=== PATIENT | male | born 1935 | race Hispanic/Latino ===

== ENCOUNTER 2019-04-12 21:04 | Inpatient (IN) | payer MEDICARE ==
[2019-04-12] MEDS ORDERED: ASPIRIN PO ONE (21:25)
[2019-04-12] MEDS ORDERED: ZOFRAN ONE (21:37)
[2019-04-12 21:53] LABS: Basophils % (Auto) 0.2 % (0.0-1.8); Hematocrit 37.4 % (35.5-45.6); Hemoglobin 12.2 gm/dl (11.8-15.2); Lymphocytes # (Auto) 0.4 K/mm3 (1.2-5.4); Lymphocytes % (Auto) 10.4 % (13.4-35.0); Mean Corpuscular HGB Conc 33 % (32-34); Mean Corpuscular Volume 98 fl (84-94); Monocytes % (Auto) 0.9 % (0.0-7.3); Platelet Count 142 K/mm3 (140-440); Red Blood Count 3.83 M/mm3 (3.65-5.03); Red Cell Distribution Width 15.7 % (13.2-15.2)
[2019-04-12 22:04] LABS: BUN/Creatinine Ratio 16; Blood Urea Nitrogen 24 mg/dL (9-20); Calcium 8.8 mg/dL (8.4-10.2); Hemolysis Index 41
--- NOTE | 2019-04-12 22:37 | XRay Report ---
CHEST 1 VIEW INDICATION / CLINICAL INFORMATION: Chest Pain. COMPARISON: 10/15/2015 chest FINDINGS: SUPPORT DEVICES: Left subclavian dual-lead pacemaker with intact right atrial and right ventricular l star. HEART / MEDIASTINUM: Normal heart size. Tortuous descending thoracic aorta. LUNGS / PLEURA: No acute airspace disease. Elevated right hemidiaphragm noted. No pleural fluid or pn eumothorax. IMPRESSION: 1. No acute findings. Signer Name: Adeel Walton MD Signed: 04/12/2019 10:32 PM Workstation Name: [id number]
--- NOTE | 2019-04-12 23:09 | Emergency Department Report ---
HPI - General Chief Complaint: Abdominal Pain Time Seen by Provider: 04/12/19 22:12 - HPI HPI: 84-year-old male presents to the emergency department via EMS with the complaint of lower chest and upper abdominal pain that started about 2 hours dion or to arrival. It was associated with some nausea and vomiting. He did not take anything and was not given anything for his symptoms prior to presentation. His pain has improved from the original 10 out of 10 to about a 4 out of 10. EMS said that they saw a 2 fibrillation with PVCs on 1-lead. He had a blood pressure 197/128 with EMS. The patient is awake and alert but does have some history of dementia. His is currently at bedside providing some information as well. He has a past nuchal history of GERD, hypertension, his maker, coronary artery disease, high cholesterol. His primary care physician is Dr. Morejon and his spray gun sizer is Dr. Christianson. No recent travel or sick contacts at home. ED Past Medical Hx - Past Medical History Previous Medical History?: Yes Hx Hypertension: Yes Hx Diabetes: Yes (PREDIABETIC) Hx GERD: Yes Hx Arthritis: Yes (baclk) Hx Kidney Stones: Yes Additional medical history: Pacemaker, SHINGLES. CAD. HIGH CHOLESTEROL - Surgical History Past Surgical History?: Yes Hx Appendectomy: Yes Additional Surgical History: Pacemaker. HERNIA REPAIR X 3. CYSTOSCOPE. CAROTID SURGERY (LEFT) - Social History Smoking Status: Former Smoker Substance Use Type: Prescribed - Medications Home Medications: Home Medications Medication Instructions Recorded Confirmed Last Taken Type Aspirin 325 mg PO QDAY #30 tablet 08/30/15 10/15/15 10/13/15 Rx Benazepril HCl [Lotensin] 20 mg PO DAILY #30 tablet 08/30/15 10/15/15 10/13/15 Rx Simvastatin (Nf) [Zocor TAB] 20 mg PO QHS #30 tablet 08/30/15 10/15/15 10/13/15 Rx ED Review of Systems ROS: Stated complaint: ABD PAIN/CHEST PAIN Other details as noted in HPI Comment: All other systems reviewed and negative Constitutional: denies: chills, fever Eyes: denies: eye pain, vision change ENT: denies: ear pain, throat pain Respiratory: shortness of breath. denies: cough Cardiovascular: chest pain. denies: palpitations Gastrointestinal: abdominal pain, nausea, vomiting Genitourinary: denies: dysuria, frequency Musculoskeletal: denies: back pain, arthralgia Skin: denies: rash, lesions Neurological: denies: headache, weakness Physical Exam - Physical Exam Vital Signs: Vital Signs 04/12/19 21:15 Temperature 101.6 F H Pulse Rate 93 H Respiratory 22 Rate Blood Pressure 129/57 [Left] O2 Sat by Pulse 97 Oximetry Physical Exam: GENERAL: The patient is well-developed well-nourished. HENT: Normocephalic. Atraumatic. Patient has moist mucous membranes. EYES: Extraocular motions are intact. Pupils equal reactive to light bilateral ly. NECK: Supple. Trachea is midline. CHEST/LUNGS: Clear to auscultation. There is no respiratory distress noted. HEART/CARDIOVASCULAR: Regular. There is no tachycardia. There is no murmur. ABDOMEN: Abdomen is soft. There is epigastric and right upper quadrant tenderness to palpation. No guarding. Patient has normal bowel sounds. There is no abdominal distention. SKIN: Skin is warm and dry. NEURO: The patient is awake, alert, and cooperative. The patient has no focal neurologic deficits. Normal speech. MUSCULOSKELETAL: There is no tenderness or deformity. There is no evidence of acute injury. ED Course Vital Signs 04/12/19 21:15 Temperature 101.6 F H Pulse Rate 93 H Respiratory 22 Rate Blood Pressure 129/57 [Left] O2 Sat by Pulse 97 Oximetry - Consultations Consultation #1: 04/13/19 05:01 I spoke with the general surgeon on-call, Dr. Zavala, regarding the lab and imaging results with concern for early acute cholecystitis. She is happy to consult on the patient but there is no immediate surgical intervention necessary. She agrees with the plan for IV fluid resuscitation, pain control, antiemetics and nothing by mouth. ED Medical Decision Making - Lab Data Result diagrams: 04/12/19 21:40 04/12/19 21:40 - EKG Data -: EKG Interpreted by Me - EKG Data When compared to previous EKG there are: changes noted (previous EKG did not show pacemaker) Interpretation: other (atrial sensed ventricular paced rhythm, rate 94, prolonged IA and QTC intervals) - Radiology Data Radiology results: report reviewed, image reviewed interpreted by me: Chest x-ray does not show any acute process. There are no pleural effusions, obvious pneumonia and there is no pneumothorax. CT ABDOMEN AND PELVIS WITH IV CONTRAST INDICATION: Abd pain, elevated lipase. COMPARISON: None available. TECHNIQUE: Axial CT images were obtained through the abdomen and pelvis after 100 mL IV contrast. All CT scans at this location are performed using CT dose reduction for ALARA by means of automated exposure control. FINDINGS -- ABDOMEN: Lung Bases: No acute abnormality. Liver: Normal. Gallbladder: Mild gallbladder wall thickening. No gallstones identified.. Bile Ducts: Common bile duct is borderline dilated measuring 7 to 8 mm in diameter.. Pancreas: No significant inflammatory process Spleen: Normal. Adrenals: Normal. Right Kidney and Proximal Ureter: Large simple cyst. 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 Stomach and Bowel: Normal. Lymph Nodes: No significant adenopathy. Aorta: Scattered atherosclerotic calcification.. IVC: Normal. Additional Findings: None. FINDINGS -- PELVIS: Urinary Bladder and Distal Ureters: Normal. Reproductive Organs: No acute abnormality. Appendix: Normal. Bowel: Few colonic diverticula without diverticulitis.. Free Fluid: None. Lymph Nodes: No significant adenopathy. Additional Findings: None. Skeletal System: No acute abnormality. IMPRESSION: 1. The gallbladder wall appears borderline thickened which could be seen with early cholecystitis. No gallstones appreciated. 2. No significant peripancreatic inflammation appreciated. CTA CHEST WITH IV CONTRAST INDICATION: CP, elevated dimer. Acute onset chest pain with dyspnea. TECHNIQUE: Axial CT images were obtained through the chest after injection of 100 mL IV contrast. 3 plane MIP reconstructions were produced. All CT scans at this location are performed using CT dose reduction for ALARA by means of automated exposure control. COMPARISON: None available. FINDINGS: PULMONARY ARTERIES: No pulmonary emboli. AORTA AND ARTERIES: No acute abnormality. MEDIASTINUM: No mass, lymphadenopathy or other significant abnormality. The heart is normal in size without a pericardial effusion. The trachea and main bronchi are patent and normal in caliber. LUNGS: No acute consolidation, nodule or mass. Linear opacity within both lower lungs likely rep resents atelectasis and/or scarring. No pneumothorax or pleural effusion. ADDITIONAL FINDINGS: None. BONES: No significant osseous abnormality. IMPRESSION: 1. No CT evidence for pulmonary embolism. 2. No acute findings. Bibasilar atelectasis and pulmonary scarring. - Medical Decision Making Patient presents with some acute upper abdominal and lower chest pain. EKG does not show any signs of ST elevation SD. Chest x-ray does not show any acute process. Patient has negative troponins 2 thus far. He had an elevated d- dimer level so a CT angiography of the chest was done that does not show any pulmonary embolism, dissection, aneurysm, or any other acute process. Patient's labs also show an elevated lipase of almost 1000, elevated total bilirubin and LFTs. CT scan of the abdomen and pelvis with IV contrast was completed that showed some thickening to the gallbladder wall that could be concerning for acute cholecystitis. However the differentials could still include choledocholithiasis versus other. General surgery was contacted and consult at. Patient will be admitted to the hospital for further evaluation and treatment and was accepted for admission by the hospitalist, Dr. Ahn. - Differential Diagnosis cholelithiasis, choledocholithiasis, pancreatitis, hepatitis Critical Care Time: No Critical care attestation.: If time is entered above; I have spent that time in minutes in the direct care of this critically ill patient, excluding procedure time. ED Disposition Clinical Impression: Abdominal pain, Cholecystitis, Transaminitis Disposition: -09 OP ADMIT IP TO THIS HOSP Is pt being admited?: Yes Condition: Fair Time of Disposition: 05:05
[2019-04-13 01:03] LABS: Albumin 3.8 g/dL (3.9-5); Bilirubin,Direct 1.6 mg/dL (0-0.2)
--- NOTE | 2019-04-13 01:57 | Cat Scan Report ---
CTA CHEST WITH IV CONTRAST INDICATION: CP, elevated dimer. Acute onset chest pain with dyspnea. TECHNIQUE: Axial CT images were obtained through the chest after injection of 100 mL IV contrast. 3 plane MIP re constructions were produced. All CT scans at this location are performed using CT dose reduction for ALARA by means of automated exposure control. COMPARISON: None available. FINDINGS: PULMONARY ARTERIES: No pulmonary emboli. AORTA AND ARTERIES: No acute abnormality. MEDIASTINUM: No mass, lymphadenopathy or other significant abnormality. The heart is normal in size w ithout a pericardial effusion. The trachea and main bronchi are patent and normal in caliber. LUNGS: No acute consolidation, nodule or mass. Linear opacity within both lower lungs likely represen ts atelectasis and/or scarring. No pneumothorax or pleural effusion. ADDITIONAL FINDINGS: None. BONES: No significant osseous abnormality. IMPRESSION: 1. No CT evidence for pulmonary embolism. 2. No acute findings. Bibasilar atelectasis and pulmonary scarring. Signer Name: Michael Gonzáles MD Signed: 04/13/2019 1:52 AM Workstation Name: [id number]
--- NOTE | 2019-04-13 01:59 | Cat Scan Report ---
CT ABDOMEN AND PELVIS WITH IV CONTRAST INDICATION: Abd pain, elevated lipase. COMPARISON: None available. TECHNIQUE: Axial CT images were obtained through the abdomen and pelvis after 100 mL IV contrast. All CT scans a t this location are performed using CT dose reduction for ALARA by means of automated exposure contro l. FINDINGS -- ABDOMEN: Lung Bases: No acute abnormality. Liver: Normal. Gallbladder: Mild gallbladder wall thickening. No gallstones identified.. Bile Ducts: Common bile du ct is borderline dilated measuring 7 to 8 mm in diameter.. Pancreas: No significant inflammatory process Spleen: Normal. Adrenals: Normal. Right Kidney and Proximal Ureter: Large simple cyst. 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 Stomach and Bowel: Normal. Lymph Nodes: No significant adenopathy. Aorta: Scattered atherosclerotic calcification.. IVC: Normal. Additional Findings: None. FINDINGS -- PELVIS: Urinary Bladder and Distal Ureters: Normal. Reproductive Organs: No acute abnormality. Appendix: Normal. Bowel: Few colonic diverticula without diverticulitis.. Free Fluid: None. Lymph Nodes: No significant adenopathy. Additional Findings: None. Skeletal System: No acute abnormality. IMPRESSION: 1. The gallbladder wall appears borderline thickened which could be seen with early cholecystitis. No gallstones appreciated. 2. No significant peripancreatic inflammation appreciated. Signer Name: Michael Gonzáles MD Signed: 04/13/2019 1:55 AM Workstation Name: [employer]
[2019-04-13] MEDS ORDERED: SODIUM CHLORIDE FLUSH SYRINGE 10 ML IV PRN (02:54)
[2019-04-13] MEDS ORDERED: MORPHINE IV PRN (02:54)
[2019-04-13] MEDS ORDERED: ZOFRAN IV PRN (02:54)
[2019-04-13] MEDS ORDERED: TYLENOL PO PRN (02:54)
--- NOTE | 2019-04-13 02:57 | History and Physical Report ---
Medications and Allergies Allergies Allergy/AdvReac Type Severity Reaction Status Date / Time codeine Allergy Unknown Verified 08/28/15 17:18 Home Medications Medication Instructions Recorded Confirmed Last Taken Type Aspirin 325 mg PO QDAY #30 tablet 08/30/15 10/15/15 10/13/15 Rx Benazepril HCl [Lotensin] 20 mg PO DAILY #30 tablet 08/30/15 10/15/15 10/13/15 Rx Simvastatin (Nf) [Zocor TAB] 20 mg PO QHS #30 tablet 08/30/15 10/15/15 10/13/15 Rx Active Meds: Active Medications Enoxaparin Sodium (Lovenox) 30 mg SUB-Q QDAY PETE Exam - Constitutional Vitals: Temp Pulse Resp BP Pulse Ox 100.2 F H 99 H 24 111/52 97 04/13/19 01:25 04/13/19 00:15 04/13/19 00:15 04/13/19 00:15 04/13/19 00:15 Results - Labs CBC & Chem 7: 04/12/19 21:40 04/12/19 21:40 Labs: Laboratory Last Values WBC 4.1 K/mm3 (4.5-11.0) L 04/12/19 21:40 RBC 3.83 M/mm3 (3.65-5.03) 04/12/19 21:40 Hgb 12.2 gm/dl (11.8-15.2) 04/12/19 21:40 Hct 37.4 % (35.5-45.6) 04/12/19 21:40 MCV 98 fl (84-94) H 04/12/19 21:40 MCH 32 pg (28-32) 04/12/19 21:40 MCHC 33 % (32-34) 04/12/19 21:40 RDW 15.7 % (13.2-15.2) H 04/12/19 21:40 Plt Count 142 K/mm3 (140-440) 04/12/19 21:40 Lymph % (Auto) 10.4 % (13.4-35.0) L 04/12/19 21:40 Henry % (Auto) 0.9 % (0.0-7.3) 04/12/19 21:40 Eos % (Auto) 1.0 % (0.0-4.3) 04/12/19 21:40 Baso % (Auto) 0.2 % (0.0-1.8) 04/12/19 21:40 Lymph # 0.4 K/mm3 (1.2-5.4) L 04/12/19 21:40 Henry # 0.0 K/mm3 (0.0-0.8) 04/12/19 21:40 Eos # 0.0 K/mm3 (0.0-0.4) 04/12/19 21:40 Baso # 0.0 K/mm3 (0.0-0.1) 04/12/19 21:40 Seg Neutrophils % 87.5 % (40.0-70.0) H 04/12/19 21:40 Seg Neutrophils # 3.6 K/mm3 (1.8-7.7) 04/12/19 21:40 D-Dimer 646.18 ng/mlDDU (0-234) H 04/12/19 23:01 Sodium 142 mmol/L (137-145) 04/12/19 21:40 Potassium 4.5 mmol/L (3.6-5.0) 04/12/19 21:40 Chloride 101.4 mmol/L (98-107) 04/12/19 21:40 Carbon Dioxide 22 mmol/L (22-30) 04/12/19 21:40 Anion Gap 23 mmol/L 04/12/19 21:40 BUN 24 mg/dL (9-20) H 04/12/19 21:40 Creatinine 1.5 mg/dL (0.8-1.5) 04/12/19 21:40 Estimated GFR 44 ml/min 04/12/19 21:40 BUN/Creatinine Ratio 16 % 04/12/19 21:40 Glucose 144 mg/dL (75-100) H 04/12/19 21:40 Calcium 8.8 mg/dL (8.4-10.2) 04/12/19 21:40 Total Bilirubin 2.40 mg/dL (0.1-1.2) H 04/13/19 00:15 Direct Bilirubin 1.6 mg/dL (0-0.2) H 04/13/19 00:15 Indirect Bilirubin 0.8 mg/dL 04/13/19 00:15 AST 193 units/L (5-40) H 04/13/19 00:15 ALT 222 units/L (7-56) H 04/13/19 00:15 Alkaline Phosphatase 161 units/L (35-129) H 04/13/19 00:15 Troponin T < 0.010 ng/mL (0.00-0.029) 04/13/19 00:15 NT-Pro-B Natriuret Pep 955.1 pg/mL (0-900) H 04/12/19 23:01 Total Protein 6.4 g/dL (6.3-8.2) 04/13/19 00:15 Albumin 3.8 g/dL (3.9-5) L 04/13/19 00:15 Albumin/Globulin Ratio 1.5 % 04/13/19 00:15 Lipase 964 units/L (13-60) H 04/12/19 21:40
[2019-04-13] MEDS ORDERED: D5NS 1,000 ML IV SCH (03:00)
--- NOTE | 2019-04-13 03:29 | History and Physical Report ---
<AKHIL RUIZ - Last Filed: 04/13/19 03:15> History of Present Illness Date of examination: 04/13/19 Date of admission: 04/13/19 Chief complaint: abdominal pain x 1 day History of present illness: Pt is an 84-year-old male with PMHx of CAD, s/p pacemaker, HDL, GERD, hernia repair x 3, who was brought to the ER with the complaint of abdominal pain. Pt states that the pain was of an intensity of 10 out of 10, it was located in the right upper quadrant of the abdomen, radiating to the upper back. Pt states that the pain was associated with nausea and vomiting and lasted a few hours, his called EMS who took him to the ER for evaluation. Pt's blood pressure was reported to be elevated prior to coming to the ER (197/128), pt had a CT scan of the abdomen that showed gallbladder wall appears borderline thickened which could be seen with cholecystitis. General surgery was consulted and pt is kept NPO for acute cholecystitis. Past History Past Medical History: CAD, GERD, hypertension, hyperlipidemia Past Surgical History: Other (pacemaker insertion) Social history: no significant social history Family history: no significant family history Medications and Allergies Allergies Allergy/AdvReac Type Severity Reaction Status Date / Time codeine Allergy Unknown Verified 08/28/15 17:18 Home Medications Medication Instructions Recorded Confirmed Last Taken Type Aspirin 325 mg PO QDAY #30 tablet 08/30/15 10/15/15 10/13/15 Rx Benazepril HCl [Lotensin] 20 mg PO DAILY #30 tablet 08/30/15 10/15/15 10/13/15 Rx Simvastatin (Nf) [Zocor TAB] 20 mg PO QHS #30 tablet 08/30/15 10/15/15 10/13/15 Rx Active Meds: Active Medications Acetaminophen (Tylenol) 650 mg PO Q4H PRN PRN Reason: Pain MILD(1-3)/Fever >100.5/LUNA Enoxaparin Sodium (Lovenox) 30 mg SUB-Q QDAY PETE Famotidine (Pepcid) 20 mg IV BID PETE Dextrose/Sodium Chloride (D5ns) 1,000 mls @ 100 mls/hr IV DIRECT PETE Morphine Sulfate (Morphine) 2 mg IV Q4H PRN PRN Reason: Pain, Moderate (4-6) Ondansetron HCl (Zofran) 4 mg IV Q8H PRN PRN Reason: Nausea And Vomiting Sodium Chloride (Sodium Chloride Flush Syringe 10 Ml) 10 ml IV BID PETE Sodium Chloride (Sodium Chloride Flush Syringe 10 Ml) 10 ml IV PRN PRN PRN Reason: LINE FLUSH Review of Systems Gastrointestinal: abdominal pain Exam - Constitutional Vitals: Temp Pulse Resp BP Pulse Ox 100.2 F H 99 H 24 111/52 97 04/13/19 01:25 04/13/19 00:15 04/13/19 00:15 04/13/19 00:15 04/13/19 00:15 General appearance: Present: no acute distress - EENT Eyes: Present: EOM intact ENT: hearing intact - Neck Neck: Present: normal ROM - Respiratory Respiratory effort: normal Respiratory: bilateral: CTA - Cardiovascular Rhythm: regular Heart Sounds: Present: S1 & S2 - Extremities Extremities: no ischemia - Abdominal General gastrointestinal: Present: tender, non-distended Localized gastrointestinal: tender: RUQ Male genitourinary: Present: deferred - Rectal Rectal Exam: deferred - Integumentary Integumentary: Present: warm, dry - Musculoskeletal Musculoskeletal: strength equal bilaterally - Psychiatric Psychiatric: cooperative - Neurologic Neurologic: moves all extremities Results - Labs CBC & Chem 7: 04/12/19 21:40 04/12/19 21:40 Labs: Laboratory Last Values WBC 4.1 K/mm3 (4.5-11.0) L 04/12/19 21:40 RBC 3.83 M/mm3 (3.65-5.03) 04/12/19 21:40 Hgb 12.2 gm/dl (11.8-15.2) 04/12/19 21:40 Hct 37.4 % (35.5-45.6) 04/12/19 21:40 MCV 98 fl (84-94) H 04/12/19 21:40 MCH 32 pg (28-32) 04/12/19 21:40 MCHC 33 % (32-34) 04/12/19 21:40 RDW 15.7 % (13.2-15.2) H 04/12/19 21:40 Plt Count 142 K/mm3 (140-440) 04/12/19 21:40 Lymph % (Auto) 10.4 % (13.4-35.0) L 04/12/19 21:40 Dickey % (Auto) 0.9 % (0.0-7.3) 04/12/19 21:40 Eos % (Auto) 1.0 % (0.0-4.3) 04/12/19 21:40 Baso % (Auto) 0.2 % (0.0-1.8) 04/12/19 21:40 Lymph # 0.4 K/mm3 (1.2-5.4) L 04/12/19 21:40 Dickey # 0.0 K/mm3 (0.0-0.8) 04/12/19 21:40 Eos # 0.0 K/mm3 (0.0-0.4) 04/12/19 21:40 Baso # 0.0 K/mm3 (0.0-0.1) 04/12/19 21:40 Seg Neutrophils % 87.5 % (40.0-70.0) H 04/12/19 21:40 Seg Neutrophils # 3.6 K/mm3 (1.8-7.7) 04/12/19 21:40 D-Dimer 646.18 ng/mlDDU (0-234) H 04/12/19 23:01 Sodium 142 mmol/L (137-145) 04/12/19 21:40 Potassium 4.5 mmol/L (3.6-5.0) 04/12/19 21:40 Chloride 101.4 mmol/L (98-107) 04/12/19 21:40 Carbon Dioxide 22 mmol/L (22-30) 04/12/19 21:40 Anion Gap 23 mmol/L 04/12/19 21:40 BUN 24 mg/dL (9-20) H 04/12/19 21:40 Creatinine 1.5 mg/dL (0.8-1.5) 04/12/19 21:40 Estimated GFR 44 ml/min 04/12/19 21:40 BUN/Creatinine Ratio 16 % 04/12/19 21:40 Glucose 144 mg/dL (75-100) H 04/12/19 21:40 Calcium 8.8 mg/dL (8.4-10.2) 04/12/19 21:40 Total Bilirubin 2.40 mg/dL (0.1-1.2) H 04/13/19 00:15 Direct Bilirubin 1.6 mg/dL (0-0.2) H 04/13/19 00:15 Indirect Bilirubin 0.8 mg/dL 04/13/19 00:15 AST 193 units/L (5-40) H 04/13/19 00:15 ALT 222 units/L (7-56) H 04/13/19 00:15 Alkaline Phosphatase 161 units/L (35-129) H 04/13/19 00:15 Troponin T < 0.010 ng/mL (0.00-0.029) 04/13/19 00:15 NT-Pro-B Natriuret Pep 955.1 pg/mL (0-900) H 04/12/19 23:01 Total Protein 6.4 g/dL (6.3-8.2) 04/13/19 00:15 Albumin 3.8 g/dL (3.9-5) L 04/13/19 00:15 Albumin/Globulin Ratio 1.5 % 04/13/19 00:15 Lipase 964 units/L (13-60) H 04/12/19 21:40 Assessment and Plan Assessment and plan: 1. Acute cholecystectomy 2. Abdominal pain (due to above) 3. Leukocytosis 4. Hyperbilirubenemia 5. Transaminitis 6. Elevated lipase 7. CAD 8. S/p pacemaker insertion 9. Hyperlipidemia 10. GERD Plan Pt is admitted to surgical floor for acute cholecystitis Consult surgery for evaluation Keep NPO for possible surgery in am Pain control PRN for abdominal pain Protonix 40 IV Q day IVF with D5NS at 100ml EKG, consult cardiology for cardiac clearance Further plan per hospital course Advance Directives: Yes VTE prophylaxis?: Mechanical Plan of care discussed with patient/family: Yes <JAZLYN HIGHTOWER - Last Filed: 04/13/19 06:32> History of Present Illness Date of admission: 04/13/19 02:35 Medications and Allergies Active Meds: Active Medications Acetaminophen (Tylenol) 650 mg PO Q4H PRN PRN Reason: Pain MILD(1-3)/Fever >100.5/LUNA Enoxaparin Sodium (Lovenox) 30 mg SUB-Q QDAY PETE Famotidine (Pepcid) 20 mg IV QAM PETE Piperacillin Sod/Tazobactam Sod (Zosyn/Ns 2.25 Gm/50ml) 2.25 gm in 50 mls @ 100 mls/hr IV Q8HR PETE; Protocol Sodium Chloride (Nacl 0.9% 1000 Ml) 1,000 mls @ 125 mls/hr IV DIRECT PETE Morphine Sulfate (Morphine) 1 mg IV Q4H PRN PRN Reason: Pain, Moderate (4-6) Ondansetron HCl (Zofran) 4 mg IV Q8H PRN PRN Reason: Nausea And Vomiting Sodium Chloride (Sodium Chloride Flush Syringe 10 Ml) 10 ml IV BID PETE Sodium Chloride (Sodium Chloride Flush Syringe 10 Ml) 10 ml IV PRN PRN PRN Reason: LINE FLUSH Exam - Constitutional Vitals: Temp Pulse Resp BP Pulse Ox 98.8 F 74 18 100/53 100 04/13/19 05:20 04/13/19 04:51 04/13/19 05:20 04/13/19 05:20 04/13/19 05:20 Results - Labs CBC & Chem 7: 04/12/19 21:40 04/12/19 21:40 Labs: Laboratory Last Values WBC 4.1 K/mm3 (4.5-11.0) L 04/12/19 21:40 RBC 3.83 M/mm3 (3.65-5.03) 04/12/19 21:40 Hgb 12.2 gm/dl (11.8-15.2) 04/12/19 21:40 Hct 37.4 % (35.5-45.6) 04/12/19 21:40 MCV 98 fl (84-94) H 04/12/19 21:40 MCH 32 pg (28-32) 04/12/19 21:40 MCHC 33 % (32-34) 04/12/19 21:40 RDW 15.7 % (13.2-15.2) H 04/12/19 21:40 Plt Count 142 K/mm3 (140-440) 04/12/19 21:40 Lymph % (Auto) 10.4 % (13.4-35.0) L 04/12/19 21:40 Dickey % (Auto) 0.9 % (0.0-7.3) 04/12/19 21:40 Eos % (Auto) 1.0 % (0.0-4.3) 04/12/19 21:40 Baso % (Auto) 0.2 % (0.0-1.8) 04/12/19 21:40 Lymph # 0.4 K/mm3 (1.2-5.4) L 04/12/19 21:40 Dickey # 0.0 K/mm3 (0.0-0.8) 04/12/19 21:40 Eos # 0.0 K/mm3 (0.0-0.4) 04/12/19 21:40 Baso # 0.0 K/mm3 (0.0-0.1) 04/12/19 21:40 Seg Neutrophils % 87.5 % (40.0-70.0) H 04/12/19 21:40 Seg Neutrophils # 3.6 K/mm3 (1.8-7.7) 04/12/19 21:40 D-Dimer 646.18 ng/mlDDU (0-234) H 04/12/19 23:01 Sodium 142 mmol/L (137-145) 04/12/19 21:40 Potassium 4.5 mmol/L (3.6-5.0) 04/12/19 21:40 Chloride 101.4 mmol/L (98-107) 04/12/19 21:40 Carbon Dioxide 22 mmol/L (22-30) 04/12/19 21:40 Anion Gap 23 mmol/L 04/12/19 21:40 BUN 24 mg/dL (9-20) H 04/12/19 21:40 Creatinine 1.5 mg/dL (0.8-1.5) 04/12/19 21:40 Estimated GFR 44 ml/min 04/12/19 21:40 BUN/Creatinine Ratio 16 % 04/12/19 21:40 Glucose 144 mg/dL (75-100) H 04/12/19 21:40 Calcium 8.8 mg/dL (8.4-10.2) 04/12/19 21:40 Total Bilirubin 2.40 mg/dL (0.1-1.2) H 04/13/19 00:15 Direct Bilirubin 1.6 mg/dL (0-0.2) H 04/13/19 00:15 Indirect Bilirubin 0.8 mg/dL 04/13/19 00:15 AST 193 units/L (5-40) H 04/13/19 00:15 ALT 222 units/L (7-56) H 04/13/19 00:15 Alkaline Phosphatase 161 units/L (35-129) H 04/13/19 00:15 Troponin T 0.011 ng/mL (0.00-0.029) 04/13/19 03:25 NT-Pro-B Natriuret Pep 955.1 pg/mL (0-900) H 04/12/19 23:01 Total Protein 6.4 g/dL (6.3-8.2) 04/13/19 00:15 Albumin 3.8 g/dL (3.9-5) L 04/13/19 00:15 Albumin/Globulin Ratio 1.5 % 04/13/19 00:15 Lipase 964 units/L (13-60) H 04/12/19 21:40 Assessment and Plan Assessment and plan: 84 year old man with CAD, GERD, hyperlipidemia comes emergency room with complaints of abdominal pain, fever. Patient with cholecystitis versus choledocholithiasis. Add Zosyn, change IVF to NS, surgical consult pending
[2019-04-13] MEDS ORDERED: ZOSYN/NS 2.25 GM/50ML 2.25 GM/50 ML BAG IV SCH (06:26)
[2019-04-13] MEDS: NACL 0.9% 1000 ML 1,000 ML IV SCH ×2 (06:41→21:51)
[2019-04-13 07:55] LABS: Basophils % (Auto) 0.3 % (0.0-1.8); Hematocrit 33.6 % (35.5-45.6); Hemoglobin 11.2 gm/dl (11.8-15.2); Lymphocytes # (Auto) 0.6 K/mm3 (1.2-5.4); Lymphocytes % (Auto) 6.1 % (13.4-35.0); Mean Corpuscular HGB Conc 33 % (32-34); Mean Corpuscular Volume 96 fl (84-94); Monocytes # (Auto) 0.9 K/mm3 (0.0-0.8); Monocytes % (Auto) 9.9 % (0.0-7.3); Platelet Count 131 K/mm3 (140-440); Red Blood Count 3.52 M/mm3 (3.65-5.03); Red Cell Distribution Width 15.5 % (13.2-15.2)
[2019-04-13 08:28] LABS: Calcium 8.7 mg/dL (8.4-10.2)
[2019-04-13 08:29] LABS: Albumin 3.8 g/dL (3.9-5)
[2019-04-13] MEDS: PEPCID IV SCH (09:19)
[2019-04-13] MEDS: SODIUM CHLORIDE FLUSH SYRINGE 10 ML IV SCH ×2 (09:20→22:30)
--- NOTE | 2019-04-13 10:35 | Consultation ---
History of Present Illness Consult date: 04/13/19 Requesting physician: MARILUZ KING Consult reason: post op evaluation History of present illness: 84-year-old patient with known history of a pacemaker last 3 years has a history of left carotid enterectomy 5 years ago and hernia repair presents to emergency room for abdominal pain and patient on CAT scan suspected cholecystitis with elevated liver function test and mild insufficiency is nothing by mouth for possible surgery. 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 Patient no signs of congestive heart failure patient does pushups denies any chest pain or shortness of breath with activity. No chest pain or shortness of breath abdominal pain with nausea no vomiting. No palpitations. Past History Past Medical History: GERD, hypertension, hyperlipidemia, other (cardiomyopathy) Past Surgical History: hernia repair, Other (pacemaker insertion, left carotid endarterectomy) Social history: no significant social history Family history: no significant family history Medications and Allergies Allergies Allergy/AdvReac Type Severity Reaction Status Date / Time codeine Allergy Unknown Verified 08/28/15 17:18 Home Medications Medication Instructions Recorded Confirmed Last Taken Type Aspirin 325 mg PO QDAY #30 tablet 08/30/15 10/15/15 10/13/15 Rx Benazepril HCl [Lotensin] 20 mg PO DAILY #30 tablet 08/30/15 10/15/15 10/13/15 Rx Simvastatin (Nf) [Zocor TAB] 20 mg PO QHS #30 tablet 08/30/15 10/15/15 10/13/15 Rx Active Meds: Active Medications Acetaminophen (Tylenol) 650 mg PO Q4H PRN PRN Reason: Pain MILD(1-3)/Fever >100.5/LUNA Enoxaparin Sodium (Lovenox) 30 mg SUB-Q QDAY PETE Famotidine (Pepcid) 20 mg IV QAM PETE Last Admin: 04/13/19 09:19 Dose: 20 mg Documented by: Sodium Chloride (Nacl 0.9% 1000 Ml) 1,000 mls @ 100 mls/hr IV DIRECT PETE Last Admin: 04/13/19 06:41 Dose: 125 mls/hr Documented by: Piperacillin Sod/Tazobactam Sod (Zosyn/Ns 2.25 Gm/50ml) 2.25 gm in 50 mls @ 100 mls/hr IV Q6HR PETE; Protocol Morphine Sulfate (Morphine) 1 mg IV Q4H PRN PRN Reason: Pain, Moderate (4-6) Ondansetron HCl (Zofran) 4 mg IV Q8H PRN PRN Reason: Nausea And Vomiting Sodium Chloride (Sodium Chloride Flush Syringe 10 Ml) 10 ml IV BID PETE Sodium Chloride (Sodium Chloride Flush Syringe 10 Ml) 10 ml IV PRN PRN PRN Reason: LINE FLUSH Review of Systems All systems: negative (as per the HPI) Physical Examination Vital Signs Pulse Ox 97 04/12/19 21:10 General appearance: no acute distress, well-nourished HEENT: Positive: PERRL, Mucus Membranes Moist Neck: Positive: neck supple, trachea midline Cardiac: Positive: Reg Rate and Rhythm, S1/S2. Negative: Audible Murmur Lungs: Positive: clear to auscultation, Normal Breath Sounds Neuro: Positive: Grossly Intact Abdomen: Positive: Soft, Active Bowel Sounds, Tender Male genitourinary: Positive: normal Skin: Positive: Clear Incision: Cardiac Cath Site Musculoskeletal: No Pain, Normal Range of Motion Extremities: Present: normal. Absent: edema Results 04/13/19 07:37 04/13/19 07:37 Cardiac Enzymes 04/13/19 04/13/19 Range/Units 00:15 07:37 AST 193 H 175 H (5-40) units/L CBC 04/12/19 04/13/19 Range/Units 21:40 07:37 WBC 4.1 L 9.4 (4.5-11.0) K/mm3 RBC 3.83 3.52 L (3.65-5.03) M/mm3 Hgb 12.2 11.2 L (11.8-15.2) gm/dl Hct 37.4 33.6 L (35.5-45.6) % Plt Count 142 131 L (140-440) K/mm3 Lymph # 0.4 L 0.6 L (1.2-5.4) K/mm3 [place] # 0.0 0.9 H (0.0-0.8) K/mm3 Eos # 0.0 0.0 (0.0-0.4) K/mm3 Baso # 0.0 0.0 (0.0-0.1) K/mm3 Comprehensive Metabolic Panel 04/12/19 04/13/19 04/13/19 Range/Units 21:40 00:15 07:37 Sodium 142 142 (137-145) mmol/L Potassium 4.5 4.1 (3.6-5.0) mmol/L Chloride 101.4 104.4 (98-107) mmol/L Carbon Dioxide 22 23 (22-30) mmol/L BUN 24 H 25 H (9-20) mg/dL Creatinine 1.5 1.6 H (0.8-1.5) mg/dL Glucose 144 H 112 H (75-100) mg/dL Calcium 8.8 8.7 (8.4-10.2) mg/dL Direct Bilirubin 1.6 H (0-0.2) mg/dL Indirect Bilirubin 0.8 mg/dL AST 193 H 175 H (5-40) units/L ALT 222 H 214 H (7-56) units/L Alkaline Phosphatase 161 H 171 H (35-129) units/L Total Protein 6.4 6.4 (6.3-8.2) g/dL Albumin 3.8 L 3.8 L (3.9-5) g/dL - Imaging and Cardiology Echo: report reviewed (04/04/2019 moderate LV dysfunction EF 30-35% with mild mitral regurgitation and mild tricuspid regurgitation) EKG interpretations - Telemetry EKG Rhythm: Paced Assessment and Plan Acute cholecystitis Acute liver elevated enzymes Acute renal efficiency Cardiomyopathy compensated LV dysfunction Pacemaker Hypertension Hyperlipidemia rec: May hold home medications patient is currently compensated LV dysfunction no overt signs or heart failure. Has no anginal symptoms. Patient is a m oderate risk cardiovascular palpation of her moderate risk artery vascular procedure has no cardiac cardiac indication to monitoring patient's labs for renal insufficiency and liver function
--- NOTE | 2019-04-13 12:21 | Event Note ---
Date: 04/13/19 Patient seen and examined, resting comfortable. Still with abdominal pain but no nausea, vomiting. Patient has a Pace-maker per family. 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 Patient per Cardiology is cleared for surgery. Keep NPO till surgical evaluation. AM labs ordered Plan discussed with family
[2019-04-13] MEDS: ZOSYN/NS 2.25 GM/50ML 2.25 GM/50 ML BAG IV SCH ×2 (12:25→17:27)
[2019-04-13] MEDS: MORPHINE IV PRN ×2 (12:27→20:02)
--- NOTE | 2019-04-13 12:44 | Consultation ---
History of Present Illness Consult date: 04/13/19 Chief complaint: abdominal pain - History of present illness History of present illness: 84 yo M with hx of PPM for bradycardia presented to hospital with 2 day hx of upper abdominal pain radiating to b/l upper quadrants. He states it is sharp and intermittent. He had soup for dinner the day it started. He has never had pain like this before. NO alleviating or exacerbating factors. No f/c. + n/v in ER. No CP, SOB. 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 Patient with dementia and history obtained from family at bedside. Patient is very active. Performs 20 minutes of cardio every day. Past History Past Medical History: GERD, hypertension, hyperlipidemia, other (cardiomyopathy) Past Surgical History: hernia repair (bilateral inguinal open), Other (pacemaker insertion, left carotid endarterectomy) Social history: no significant social history Family history: no significant family history Medications and Allergies Allergies Allergy/AdvReac Type Severity Reaction Status Date / Time codeine Allergy Unknown Verified 08/28/15 17:18 Home Medications Medication Instructions Recorded Confirmed Last Taken Type Aspirin 325 mg PO QDAY #30 tablet 08/30/15 10/15/15 10/13/15 Rx Benazepril HCl [Lotensin] 20 mg PO DAILY #30 tablet 08/30/15 10/15/15 10/13/15 Rx Simvastatin (Nf) [Zocor TAB] 20 mg PO QHS #30 tablet 08/30/15 10/15/15 10/13/15 Rx Active Meds: Active Medications Acetaminophen (Tylenol) 650 mg PO Q4H PRN PRN Reason: Pain MILD(1-3)/Fever >100.5/LUNA Enoxaparin Sodium (Lovenox) 30 mg SUB-Q QDAY PETE Famotidine (Pepcid) 20 mg IV QAM PETE Last Admin: 04/13/19 09:19 Dose: 20 mg Documented by: Sodium Chloride (Nacl 0.9% 1000 Ml) 1,000 mls @ 100 mls/hr IV DIRECT PETE Last Admin: 04/13/19 06:41 Dose: 125 mls/hr Documented by: Piperacillin Sod/Tazobactam Sod (Zosyn/Ns 2.25 Gm/50ml) 2.25 gm in 50 mls @ 100 mls/hr IV Q6HR PETE; Protocol Last Admin: 04/13/19 12:25 Dose: 100 mls/hr Documented by: Morphine Sulfate (Morphine) 1 mg IV Q4H PRN PRN Reason: Pain, Moderate (4-6) Last Admin: 04/13/19 12:27 Dose: 1 mg Documented by: Ondansetron HCl (Zofran) 4 mg IV Q8H PRN PRN Reason: Nausea And Vomiting Sodium Chloride (Sodium Chloride Flush Syringe 10 Ml) 10 ml IV BID [facility] Last Admin: 04/13/19 09:20 Dose: 10 ml Documented by: Sodium Chloride (Sodium Chloride Flush Syringe 10 Ml) 10 ml IV PRN PRN PRN Reason: LINE FLUSH Review of Systems All systems: negative (10 pt ROS performed and negative except for that listed in HPI) Exam Vital Signs Pulse Ox 97 04/12/19 21:10 Narrative exam: Gen: AAOx3. NAD ENT: NO scleral icterus or conjunctival pallor CV: S1, S2+ Resp: even and unlabored Abd: soft, ND, mild epigastric TTP. no r/r/g Ext: no c/c/e Results - Labs 04/13/19 07:37 04/13/19 07:37 Abnormal lab results 04/12/19 04/12/19 04/12/19 Range/Units 21:40 21:40 21:40 WBC 4.1 L (4.5-11.0) K/mm3 RBC (3.65-5.03) M/mm3 Hgb (11.8-15.2) gm/dl Hct (35.5-45.6) % MCV 98 H (84-94) fl RDW 15.7 H (13.2-15.2) % Plt Count (140-440) K/mm3 Lymph % (Auto) 10.4 L (13.4-35.0) % [place] % (Auto) (0.0-7.3) % Lymph # 0.4 L (1.2-5.4) K/mm3 [place] # (0.0-0.8) K/mm3 Seg Neutrophils % 87.5 H (40.0-70.0) % Seg Neutrophils # (1.8-7.7) K/mm3 D-Dimer (0-234) ng/mlDDU BUN 24 H (9-20) mg/dL Creatinine (0.8-1.5) mg/dL Glucose 144 H (75-100) mg/dL Total Bilirubin (0.1-1.2) mg/dL Direct Bilirubin (0-0.2) mg/dL AST (5-40) units/L ALT (7-56) units/L Alkaline Phosphatase (35-129) units/L NT-Pro-B Natriuret Pep (0-900) pg/mL Albumin (3.9-5) g/dL Lipase 964 H (13-60) units/L 04/12/19 04/12/19 04/13/19 Range/Units 23:01 23:01 00:15 WBC (4.5-11.0) K/mm3 RBC (3.65-5.03) M/mm3 Hgb (11.8-15.2) gm/dl Hct (35.5-45.6) % MCV (84-94) fl RDW (13.2-15.2) % Plt Count (140-440) K/mm3 Lymph % (Auto) (13.4-35.0) % [place] % (Auto) (0.0-7.3) % Lymph # (1.2-5.4) K/mm3 [place] # (0.0-0.8) K/mm3 Seg Neutrophils % (40.0-70.0) % Seg Neutrophils # (1.8-7.7) K/mm3 D-Dimer 646.18 H (0-234) ng/mlDDU BUN (9-20) mg/dL Creatinine (0.8-1.5) mg/dL Glucose (75-100) mg/dL Total Bilirubin 2.40 H (0.1-1.2) mg/dL Direct Bilirubin 1.6 H (0-0.2) mg/dL AST 193 H (5-40) units/L ALT 222 H (7-56) units/L Alkaline Phosphatase 161 H (35-129) units/L NT-Pro-B Natriuret Pep 955.1 H (0-900) pg/mL Albumin 3.8 L (3.9-5) g/dL Lipase (13-60) units/L 04/13/19 04/13/19 Range/Units 07:37 07:37 WBC (4.5-11.0) K/mm3 RBC 3.52 L (3.65-5.03) M/mm3 Hgb 11.2 L (11.8-15.2) gm/dl Hct 33.6 L (35.5-45.6) % MCV 96 H (84-94) fl RDW 15.5 H (13.2-15.2) % Plt Count 131 L (140-440) K/mm3 Lymph % (Auto) 6.1 L (13.4-35.0) % [place] % (Auto) 9.9 H (0.0-7.3) % Lymph # 0.6 L (1.2-5.4) K/mm3 [place] # 0.9 H (0.0-0.8) K/mm3 Seg Neutrophils % 83.7 H (40.0-70.0) % Seg Neutrophils # 7.9 H (1.8-7.7) K/mm3 D-Dimer (0-234) ng/mlDDU BUN 25 H (9-20) mg/dL Creatinine 1.6 H (0.8-1.5) mg/dL Glucose 112 H (75-100) mg/dL Total Bilirubin 2.90 H (0.1-1.2) mg/dL Direct Bilirubin (0-0.2) mg/dL AST 175 H (5-40) units/L ALT 214 H (7-56) units/L Alkaline Phosphatase 171 H (35-129) units/L NT-Pro-B Natriuret Pep (0-900) pg/mL Albumin 3.8 L (3.9-5) g/dL Lipase (13-60) units/L Diabetes panel 04/12/19 04/13/19 04/13/19 Range/Units 21:40 00:15 07:37 Sodium 142 142 (137-145) mmol/L Potassium 4.5 4.1 (3.6-5.0) mmol/L Chloride 101.4 104.4 (98-107) mmol/L Carbon Dioxide 22 23 (22-30) mmol/L BUN 24 H 25 H (9-20) mg/dL Creatinine 1.5 1.6 H (0.8-1.5) mg/dL Glucose 144 H 112 H (75-100) mg/dL Calcium 8.8 8.7 (8.4-10.2) mg/dL AST 193 H 175 H (5-40) units/L ALT 222 H 214 H (7-56) units/L Alkaline Phosphatase 161 H 171 H (35-129) units/L Total Protein 6.4 6.4 (6.3-8.2) g/dL Albumin 3.8 L 3.8 L (3.9-5) g/dL Calcium panel 04/12/19 04/13/19 04/13/19 Range/Units 21:40 00:15 07:37 Calcium 8.8 8.7 (8.4-10.2) mg/dL Albumin 3.8 L 3.8 L (3.9-5) g/dL Pituitary panel 04/12/19 04/13/19 Range/Units 21:40 07:37 Sodium 142 142 (137-145) mmol/L Potassium 4.5 4.1 (3.6-5.0) mmol/L Chloride 101.4 104.4 (98-107) mmol/L Carbon Dioxide 22 23 (22-30) mmol/L BUN 24 H 25 H (9-20) mg/dL Creatinine 1.5 1.6 H (0.8-1.5) mg/dL Glucose 144 H 112 H (75-100) mg/dL Calcium 8.8 8.7 (8.4-10.2) mg/dL Adrenal panel 04/12/19 04/13/19 04/13/19 Range/Units 21:40 00:15 07:37 Sodium 142 142 (137-145) mmol/L Potassium 4.5 4.1 (3.6-5.0) mmol/L Chloride 101.4 104.4 (98-107) mmol/L Carbon Dioxide 22 23 (22-30) mmol/L BUN 24 H 25 H (9-20) mg/dL Creatinine 1.5 1.6 H (0.8-1.5) mg/dL Glucose 144 H 112 H (75-100) mg/dL Calcium 8.8 8.7 (8.4-10.2) mg/dL Total Bilirubin 2.40 H 2.90 H (0.1-1.2) mg/dL AST 193 H 175 H (5-40) units/L ALT 222 H 214 H (7-56) units/L Alkaline Phosphatase 161 H 171 H (35-129) units/L Total Protein 6.4 6.4 (6.3-8.2) g/dL Albumin 3.8 L 3.8 L (3.9-5) g/dL - Imaging CT scan - abdomen: report reviewed, image reviewed CT scan - pelvis: report reviewed, image reviewed Assessment and Plan 84 yo M with 1. RUQ pain 2. elevated bilirubin 3. transaminitis CT scan A/P - gallbladder wall mildly thickened, possible early cholecystitis. No stones. Plan: 1. continue NPO, after RUQ u/s patient may be start clear liquid diet 2. IVF 3. IV abx - zosyn 4. Abd u/s to evaluate gallbladder 5. GI consult - possible choledocolithiasis. Elevated bilirubin, mostly direct concerning for CBD stone. Pt with PPM, cannot get MRI 6. hold ASA 325mg 7. cards consult noted - patient moderate risk for surgery 8. DVT ppx Further recs pending u/s results, Gi recs. Discussed plan with patient, his sons, daughter, and at bedside. All questions answered. Thank you, please call with questions
--- NOTE | 2019-04-13 16:54 | Vascular Lab Report ---
DUPLEX DOPPLER LOWER EXTREMITY VEINS, BILATERAL INDICATION / CLINICAL INFORMATION: Concern for deep venous thrombosis. TECHNIQUE: Duplex doppler imaging was performed through the veins of both lower extremities using venous reginaldo reginaldo and other maneuvers. COMPARISON: None available. FINDINGS: Right Common Femoral vein: Negative. Right Femoral vein: Negative. Right Popliteal vein: Negative. Right Calf veins: Negative. Left Common Femoral vein: Negative. Left Femoral vein: Negative. Left Popliteal vein: Negative. Left Calf veins: Negative. Additional findings: None. IMPRESSION: 1. No sonographic evidence for DVT in either lower extremity. Signer Name: Adeel Walton MD Signed: 04/13/2019 4:49 PM Workstation Name: [id number]
[2019-04-13] MEDS: ENOXAPARIN SUB-Q SCH (17:38)
--- NOTE | 2019-04-13 21:44 | Ultrasound Report ---
ULTRASOUND ABDOMEN, LIMITED (RIGHT UPPER QUADRANT) INDICATION: cholecystitis, possible choledocolithiasis. COMPARISON: None available. FINDINGS: Pancreas: Not seen due to overlying gas Liver: Slightly enlarged at 19 cm but normal echogenicity. Gallbladder: Wall is slightly thickened at 4.3 cm but no stones, sludge or pericholecystic fluid. Bile ducts: Normal. Common Bile Duct measures 5.8 mm. Free fluid: None. Additional Findings: There is a simple appearing 7.3 x 6.2 x 4.3 cm cyst in the upper pole of the rig ht kidney. IMPRESSION: 1. Slightly thickened gallbladder wall but no stones or sludge. Right renal cyst Signer Name: Brett Harkins MD Signed: 04/13/2019 9:39 PM Workstation Name: [id number]
[2019-04-13] MEDS ORDERED: D50W (25GM) Vial IV ONE ×2 (22:42→22:58)
[2019-04-13] MEDS ORDERED: D50W (25GM) Syringe IV ONE ×2 (22:51→23:11)
[2019-04-14] MEDS: ZOSYN/NS 2.25 GM/50ML 2.25 GM/50 ML BAG IV SCH ×5 (01:47→23:35)
[2019-04-14 06:39] LABS: Hematocrit 32.4 % (35.5-45.6); Hemoglobin 10.7 gm/dl (11.8-15.2); Mean Corpuscular HGB Conc 33 % (32-34); Mean Corpuscular Volume 96 fl (84-94); Platelet Count 105 K/mm3 (140-440); Red Blood Count 3.36 M/mm3 (3.65-5.03); Red Cell Distribution Width 15.5 % (13.2-15.2)
[2019-04-14 06:54] LABS: Albumin 3.4 g/dL (3.9-5); Calcium 8.2 mg/dL (8.4-10.2)
[2019-04-14] MEDS: ENOXAPARIN SUB-Q SCH (09:30)
[2019-04-14] MEDS ORDERED: TYLENOL PO PRN (09:30)
[2019-04-14] MEDS: PEPCID IV SCH (09:30)
[2019-04-14] MEDS: SODIUM CHLORIDE FLUSH SYRINGE 10 ML IV SCH ×2 (09:30→21:38)
--- NOTE | 2019-04-14 09:44 | Gastroenterology Consultation ---
History of Present Illness - Reason for Consult Consult date: 04/14/19 Abdominal Pain Requesting physician: NICOLE EDWARDS - History of Present Illness The history is per the family; the patient is pleasant and cooperative, but has chronic mild dementia, and is unreliable. He was admitted for vague bilateral UQ pain with eating, and noted in the ER to have mildly elevated liver and pancreas labs (today lipase normal, LFTs mildly better, and patient is improved). He had an US and CT that did not show GS, but did have mild GB wall thickening, and mild dilation of the CBD (5-6mm). He has had no emesis nor F/C. He has no family hx of GB disease. The patient is not in discomfort today (family says it was "moderate" yesterday). He has no CP or SOB, and is not on any new medications. Past History Past Medical History: GERD, hypertension, hyperlipidemia, other (cardiomyopathy) Past Surgical History: hernia repair (bilateral inguinal open), Other (pacemaker insertion, left carotid endarterectomy) Social history: no significant social history Family history: no significant family history Medications and Allergies Allergies Allergy/AdvReac Type Severity Reaction Status Date / Time codeine Allergy Unknown Verified 08/28/15 17:18 Home Medications Medication Instructions Recorded Confirmed Last Taken Type Aspirin 325 mg PO QDAY #30 tablet 08/30/15 10/15/15 10/13/15 Rx Benazepril HCl [Lotensin] 20 mg PO DAILY #30 tablet 08/30/15 10/15/15 10/13/15 Rx Simvastatin (Nf) [Zocor TAB] 20 mg PO QHS #30 tablet 08/30/15 10/15/15 10/13/15 Rx Active Meds: Active Medications Acetaminophen (Tylenol) 650 mg PO Q6H PRN PRN Reason: Pain MILD(1-3)/Fever >100.5/LUNA Enoxaparin Sodium (Lovenox) 30 mg SUB-Q QDAY PETE Last Admin: 04/14/19 09:30 Dose: 30 mg Documented by: Sodium Chloride (Nacl 0.9% 1000 Ml) 1,000 mls @ 100 mls/hr IV DIRECT PETE Last Admin: 04/13/19 21:51 Dose: 125 mls/hr Documented by: Piperacillin Sod/Tazobactam Sod (Zosyn/Ns 2.25 Gm/50ml) 2.25 gm in 50 mls @ 100 mls/hr IV Q6HR [facility]; Protocol Last Admin: 04/14/19 06:43 Dose: 100 mls/hr Documented by: Morphine Sulfate (Morphine) 1 mg IV Q4H PRN PRN Reason: Pain, Moderate (4-6) Last Admin: 04/13/19 20:02 Dose: 1 mg Documented by: Ondansetron HCl (Zofran) 4 mg IV Q8H PRN PRN Reason: Nausea And Vomiting Pantoprazole Sodium (Protonix) 40 mg PO QDAY [facility] Sodium Chloride (Sodium Chloride Flush Syringe 10 Ml) 10 ml IV BID [facility] Last Admin: 04/14/19 09:30 Dose: 10 ml Documented by: Sodium Chloride (Sodium Chloride Flush Syringe 10 Ml) 10 ml IV PRN PRN PRN Reason: LINE FLUSH I HAVE REVIEWED AND RECONCILED MEDICATIONS Review of Systems - Review of Systems ROS unobtainable: due to mental status Exam - Constitutional Vital Signs: Temp Pulse Resp BP Pulse Ox 98.8 F 76 18 122/61 94 04/14/19 07:26 04/14/19 08:16 04/14/19 08:16 04/14/19 07:26 04/14/19 01:49 General appearance: no acute distress - EENT Eyes: PERRL, EOM intact ENT: hearing intact, clear oral mucosa - Neck Neck: supple, normal ROM - Respiratory Respiratory effort: normal Respiratory: bilateral: CTA - Cardiovascular Rhythm: regular Extremities: no ischemia, No edema - Gastrointestinal General gastrointestinal: Present: soft, tender (Minimal RUQ tenderness without guard), non-distended - Integumentary Integumentary: Present: clear, warm, dry - Neurologic Neurological: oriented to person, strength equal bilaterally - Labs CBC & Chem 7: 04/14/19 05:17 04/14/19 05:17 Lab Results: Laboratory Results - last 24 hr 04/13/19 04/14/19 04/14/19 22:17 02:00 05:17 WBC 4.9 RBC 3.36 L Hgb 10.7 L Hct 32.4 L MCV 96 H MCH 32 MCHC 33 RDW 15.5 H Plt Count 105 L Sodium Potassium Chloride Carbon Dioxide Anion Gap BUN Creatinine Estimated GFR BUN/Creatinine Ratio Glucose POC Glucose 68 L 91 Calcium Total Bilirubin AST ALT Alkaline Phosphatase Total Protein Albumin Albumin/Globulin Ratio Lipase 04/14/19 04/14/19 04/14/19 05:17 06:45 09:50 WBC RBC Hgb Hct MCV MCH MCHC RDW Plt Count Sodium 143 Potassium 4.6 Chloride 108.9 H Carbon Dioxide 23 Anion Gap 16 BUN 23 H Creatinine 1.4 Estimated GFR 48 BUN/Creatinine Ratio 16 Glucose 75 POC Glucose 80 82 Calcium 8.2 L Total Bilirubin 2.80 H AST 97 H ALT 148 H Alkaline Phosphatase 149 H Total Protein 6.1 L Albumin 3.4 L Albumin/Globulin Ratio 1.3 Lipase 24 Assessment and Plan - Patient Problems (1) Abdominal pain Current Visit: Yes Status: Acute Plan to address problem: - Likely mild cholecystitis v choledocholithiasis - Since improved, ductal dilation minimal, and labs better, with no evidence of residual stones or fevers/chills, will advance diet - If LFTs spike tomorrow, will plan ERCP - Continue Abx for now - MRCP not possible (PPM) (2) Transaminitis Current Visit: Yes Status: Acute
--- NOTE | 2019-04-14 09:59 | Progress Note ---
Assessment and Plan Acute cholecystitis Acute liver elevated enzymes Acute renal efficiency Cardiomyopathy compensated LV dysfunction Pacemaker Hypertension Hyperlipidemia dementia rec: Patient's renal function is improving and liver function patient has anticipated ERCP tomorrow afternoon patient has no cardiac contraindication for GI procedure. Once patient is able take oral feeds to reinitiate home medications. Subjective Date of service: 04/14/19 Principal diagnosis: pre op Interval history: abd pain better and no sob Objective Vital Signs Temp Pulse Pulse Resp BP BP Pulse Ox 04/14/19 08:16 76 18 04/14/19 07:26 98.8 F 76 18 122/61 04/14/19 02:35 117/63 04/14/19 01:49 99.1 F 70 20 94 04/13/19 22:00 67 04/13/19 19:30 98.5 F 66 18 116/58 04/13/19 14:47 99.4 F 68 20 106/61 95 04/13/19 10:00 68 - Physical Examination General: Appears Well HEENT: Positive: PERRL, Mucus Membranes Moist Neck: Positive: neck supple, trachea midline Cardiac: Positive: Reg Rate and Rhythm Lungs: Positive: clear to auscultation Neuro: Positive: Grossly Intact Abdomen: Positive: Soft, Active Bowel Sounds, Tender Skin: Positive: Clear Incision: Cardiac Cath Site Musculoskeletal: No Pain, Normal Range of Motion Extremities: Present: normal. Absent: edema - Labs and Meds Cardiac Enzymes 04/14/19 Range/Units 05:17 AST 97 H (5-40) units/L CBC 04/14/19 Range/Units 05:17 WBC 4.9 (4.5-11.0) K/mm3 RBC 3.36 L (3.65-5.03) M/mm3 Hgb 10.7 L (11.8-15.2) gm/dl Hct 32.4 L (35.5-45.6) % Plt Count 105 L (140-440) K/mm3 Comprehensive Metabolic Panel 04/14/19 Range/Units 05:17 Sodium 143 (137-145) mmol/L Potassium 4.6 (3.6-5.0) mmol/L Chloride 108.9 H (98-107) mmol/L Carbon Dioxide 23 (22-30) mmol/L BUN 23 H (9-20) mg/dL Creatinine 1.4 (0.8-1.5) mg/dL Glucose 75 (75-100) mg/dL Calcium 8.2 L (8.4-10.2) mg/dL AST 97 H (5-40) units/L ALT 148 H (7-56) units/L Alkaline Phosphatase 149 H (35-129) units/L Total Protein 6.1 L (6.3-8.2) g/dL Albumin 3.4 L (3.9-5) g/dL - Imaging and Cardiology Echo: report reviewed (04/04/2019 moderate LV dysfunction EF 30-35% with mild mitral regurgitation and mild tricuspid regurgitation)
[2019-04-14] MEDS: PROTONIX PO SCH (10:04)
--- NOTE | 2019-04-14 11:53 | Progress Note ---
Assessment and Plan 84 yo M with 1. RUQ pain 2. elevated bilirubin secondary to choledocolithiasis 3. transaminitis 4. pancreatitis secondary to gallstone - resolved CT scan A/P - gallbladder wall mildly thickened, possible early cholecystitis. No stones. RUQ U/s - mildly thickened gallbladder wall, no stones Plan: 1. ok to adv to full liquid diet 2. dc IVF 3. abx - zosyn 4. GI consult noted and recs appreciated - d/w Dr. Ch. Will repeat LFTs, bilis tomorrow with ERCP tentatively scheduled for the afternoon if labs do not improve 5. hold ASA 325mg 6. cards consult noted - patient moderate risk for surgery 7. DVT ppx 8. As patient has no gallstones seen on U/s and his symptoms are improving, his risk for recurrent choledocolithiasis is minimal. Although I did discuss cholecystectomy as an option with the patient and his family, I would not recommend it at this time. Thank you, please call with questions Subjective Date of service: 04/14/19 Narrative: Pt seen and examined. No acute complaints. No abdominal pain. No n/v. No f/c. Tolerating diet. Objective Vital Signs - 12hr 04/14/19 04/14/19 04/14/19 01:49 02:35 07:26 Temperature 99.1 F 98.8 F Pulse Rate 70 76 Pulse Rate [ From Monitor] Respiratory 20 18 Rate Blood Pressure 117/63 122/61 [Left] O2 Sat by Pulse 94 Oximetry 04/14/19 10:00 Temperature Pulse Rate 80 Pulse Rate [ 80 From Monitor] Respiratory 18 Rate Blood Pressure [Left] O2 Sat by Pulse Oximetry - General physical appearance Narrative Exam: Gen: AAOx3. NAD CV: s1, S2+ Resp: even and unlabored Abd: soft, NT, ND Ext: no c/c/e - Labs 04/14/19 05:17 04/14/19 05:17 Diabetes panel 04/14/19 Range/Units 05:17 Sodium 143 (137-145) mmol/L Potassium 4.6 (3.6-5.0) mmol/L Chloride 108.9 H (98-107) mmol/L Carbon Dioxide 23 (22-30) mmol/L BUN 23 H (9-20) mg/dL Creatinine 1.4 (0.8-1.5) mg/dL Glucose 75 (75-100) mg/dL Calcium 8.2 L (8.4-10.2) mg/dL AST 97 H (5-40) units/L ALT 148 H (7-56) units/L Alkaline Phosphatase 149 H (35-129) units/L Total Protein 6.1 L (6.3-8.2) g/dL Albumin 3.4 L (3.9-5) g/dL Calcium panel 04/14/19 Range/Units 05:17 Calcium 8.2 L (8.4-10.2) mg/dL Albumin 3.4 L (3.9-5) g/dL Pituitary panel 04/14/19 Range/Units 05:17 Sodium 143 (137-145) mmol/L Potassium 4.6 (3.6-5.0) mmol/L Chloride 108.9 H (98-107) mmol/L Carbon Dioxide 23 (22-30) mmol/L BUN 23 H (9-20) mg/dL Creatinine 1.4 (0.8-1.5) mg/dL Glucose 75 (75-100) mg/dL Calcium 8.2 L (8.4-10.2) mg/dL Adrenal panel 04/14/19 Range/Units 05:17 Sodium 143 (137-145) mmol/L Potassium 4.6 (3.6-5.0) mmol/L Chloride 108.9 H (98-107) mmol/L Carbon Dioxide 23 (22-30) mmol/L BUN 23 H (9-20) mg/dL Creatinine 1.4 (0.8-1.5) mg/dL Glucose 75 (75-100) mg/dL Calcium 8.2 L (8.4-10.2) mg/dL Total Bilirubin 2.80 H (0.1-1.2) mg/dL AST 97 H (5-40) units/L ALT 148 H (7-56) units/L Alkaline Phosphatase 149 H (35-129) units/L Total Protein 6.1 L (6.3-8.2) g/dL Albumin 3.4 L (3.9-5) g/dL
--- NOTE | 2019-04-14 12:23 | Progress Note ---
Assessment and Plan - Patient Problems (1) Choledocholithiasis with acute cholecystitis Current Visit: Yes Status: Acute Plan to address problem: For ERCP tomorrow Cholecstytis mild.No cholectectomy at this point. (2) Transaminitis Current Visit: Yes Status: Acute Plan to address problem: Improving (3) Pancreatitis, acute Current Visit: Yes Status: Acute Qualifiers: Acute pancreatitis complication: unspecified Plan to address problem: Improving Sec to Gall stone. (4) Hyperlipidemia Current Visit: No Status: Chronic Qualifiers: Hyperlipidemia type: mixed hyperlipidemia Qualified Code(s): E78.2 - Mixed hyperlipidemia Plan to address problem: Hold statins for now. (5) Hypertension Current Visit: No Status: Chronic Qualifiers: Hypertension type: essential hypertension Qualified Code(s): I10 - Essential (primary) hypertension Plan to address problem: Will hold oral antihypertensives. Started on catapress patch. (6) Anemia Current Visit: Yes Status: Chronic Qualifiers: Anemia type: unspecified type Qualified Code(s): D64.9 - Anemia, unspecified Plan to address problem: Check Iron and Folic acid level and B12 level. (7) DVT prophylaxis Current Visit: Yes Status: Acute Plan to address problem: On Lovenox and GI prophyaxis Subjective Date of service: 04/14/19 Principal diagnosis: Choledocholithiasis,transaminitis,Pancreatitis Interval history: 84-year-old male with PMHx of CAD, s/p pacemaker, HDL, GERD, hernia repair x 3, who was brought to the ER with the complaint of abdominal pain. Pt states that the pain was of an intensity of 10 out of 10, it was located in the right upper quadrant of the abdomen, radiating to the upper back. Pt states that the pain was associated with nausea and vomiting and lasted a few hours, his called EMS who took him to the ER for evaluation. Pt's blood pressure was reported to be elevated prior to coming to the ER (197/128), pt had a CT scan of the abdomen that showed gallbladder wall appears borderline thickened which could be seen with cholecystitis. Also choledocholithiasis and transaminitis/Pancreatitis . For ERCP tomorrow. Objective - Constitutional Vitals: Vital Signs - 12hr 04/14/19 04/14/19 04/14/19 01:49 02:35 07:26 Temperature 99.1 F 98.8 F Pulse Rate 70 76 Pulse Rate [ From Monitor] Respiratory 20 18 Rate Blood Pressure 117/63 122/61 [Left] O2 Sat by Pulse 94 Oximetry 04/14/19 10:00 Temperature Pulse Rate 80 Pulse Rate [ 80 From Monitor] Respiratory 18 Rate Blood Pressure [Left] O2 Sat by Pulse Oximetry General appearance: Present: no acute distress, well-nourished - EENT Eyes: PERRL, EOM intact ENT: hearing intact, clear oral mucosa Ears: bilateral: normal - Neck Neck: supple, normal ROM - Respiratory Respiratory effort: normal Respiratory: bilateral: CTA - Breasts Breasts: normal - Cardiovascular Heart rate: 78 Rhythm: regular Heart Sounds: Present: S1 & S2. Absent: gallop, rub Extremities: no ischemia, pulses intact, No edema, normal color, Full ROM - Gastrointestinal General gastrointestinal: Present: soft, non-tender, non-distended, normal bowel sounds - Genitourinary Male genitourinary: normal - Integumentary Integumentary: clear, warm, dry - Musculoskeletal Musculoskeletal: 1, strength equal bilaterally - Neurologic Neurologic: CNII-XII intact, moves all extremities - Psychiatric Psychiatric: memory intact, appropriate mood/affect, intact judgment & insight - Labs CBC & Chem 7: 04/14/19 05:17 04/14/19 05:17 Labs: Abnormal lab results 04/13/19 04/14/19 04/14/19 Range/Units 22:17 05:17 05:17 RBC 3.36 L (3.65-5.03) M/mm3 Hgb 10.7 L (11.8-15.2) gm/dl Hct 32.4 L (35.5-45.6) % MCV 96 H (84-94) fl RDW 15.5 H (13.2-15.2) % Plt Count 105 L (140-440) K/mm3 Chloride 108.9 H (98-107) mmol/L BUN 23 H (9-20) mg/dL POC Glucose 68 L (70-105) Calcium 8.2 L (8.4-10.2) mg/dL Total Bilirubin 2.80 H (0.1-1.2) mg/dL AST 97 H (5-40) units/L ALT 148 H (7-56) units/L Alkaline Phosphatase 149 H (35-129) units/L Total Protein 6.1 L (6.3-8.2) g/dL Albumin 3.4 L (3.9-5) g/dL
[2019-04-14] MEDS ORDERED: CATAPRES-TTS PATCH TD SCH (14:00)
[2019-04-14 14:40] LABS: % Iron Saturation 8.97 %
[2019-04-14] MEDS: NACL 0.9% 1000 ML 1,000 ML IV SCH (21:38)
[2019-04-15] MEDS: ZOSYN/NS 2.25 GM/50ML 2.25 GM/50 ML BAG IV SCH ×4 (05:26→23:13)
[2019-04-15] MEDS: NACL 0.9% 1000 ML 1,000 ML IV SCH (05:31)
[2019-04-15 06:44] LABS: Albumin 3.3 g/dL (3.9-5); Calcium 8.6 mg/dL (8.4-10.2)
[2019-04-15] MEDS: ENOXAPARIN SUB-Q SCH (09:37)
[2019-04-15] MEDS: SODIUM CHLORIDE FLUSH SYRINGE 10 ML IV SCH ×2 (09:38→21:34)
[2019-04-15] MEDS: PROTONIX PO SCH (09:38)
--- NOTE | 2019-04-15 09:54 | Gastroenterology Progress Note ---
Assessment and Plan 1.abdominal pain 2.transaminitis -WBC WNL -LFTs- T.rene 1.20, AST 98, ALT 134, alk phos 179 -abd CT and U/S-gallbladder wall mildly thickened, no stones -MRCP not possible (PPM) -etiology-mild cholecystitis vs choledocholithiasis -clinically, patient's abd pain has now resolved. Tolerated full liquids yesterday with only 1 episode of nausea but no vomiting. -surgery following -will advance diet today and monitor symptoms -will consider ERCP tomorrow based on progress/labs (NPO after MN; hold am dose of lovenox) -continue antibiotics -continue to trend labs (CBC, CMP, and INR in am) and supportive care -will follow Subjective Date of service: 04/15/19 Principal diagnosis: elevated LFTs Interval history: Patient resting in bed this am w/o acute distress with family at bedside (daughter/). Denies abd pain. Tolerated full liquid diet yesterday with only 1 episode of nausea but no vomiting. Objective - Constitutional Vitals: Temp Pulse Resp BP Pulse Ox 99.0 F 53 L 20 113/73 94 04/15/19 07:24 04/15/19 07:24 04/15/19 07:24 04/15/19 07:24 04/15/19 07:24 General appearance: no acute distress - EENT Eyes: PERRL, EOM intact ENT: hearing intact - Respiratory Respiratory effort: normal - Cardiovascular Rhythm: regular - Gastrointestinal General gastrointestinal: Present: soft, non-tender, non-distended, normal bowel sounds - Neurologic Neurological: oriented to person - Labs CBC & Chem 7: 04/14/19 05:17 04/15/19 05:52 Labs: Laboratory Results - last 24 hr 04/14/19 04/14/19 04/14/19 13:39 13:39 16:30 Sodium Potassium Chloride Carbon Dioxide Anion Gap BUN Creatinine Estimated GFR BUN/Creatinine Ratio Glucose POC Glucose 99 Calcium Iron 21 L TIBC 234 L % Saturation 8.97 Transferrin 195 Total Bilirubin AST ALT Alkaline Phosphatase Total Protein Albumin Albumin/Globulin Ratio Vitamin B12 150.0 L 04/14/19 04/15/19 04/15/19 21:39 05:52 05:57 Sodium 146 H Potassium 4.2 Chloride 111.3 H Carbon Dioxide 21 L Anion Gap 18 BUN 20 Creatinine 1.5 Estimated GFR 44 BUN/Creatinine Ratio 13 Glucose 94 POC Glucose 76 88 Calcium 8.6 Iron TIBC % Saturation Transferrin Total Bilirubin 1.20 AST 98 H ALT 134 H Alkaline Phosphatase 179 H Total Protein 6.2 L Albumin 3.3 L Albumin/Globulin Ratio 1.1 Vitamin B12 04/15/19 07:34 Sodium Potassium Chloride Carbon Dioxide Anion Gap BUN Creatinine Estimated GFR BUN/Creatinine Ratio Glucose POC Glucose 93 Calcium Iron TIBC % Saturation Transferrin Total Bilirubin AST ALT Alkaline Phosphatase Total Protein Albumin Albumin/Globulin Ratio Vitamin B12
--- NOTE | 2019-04-15 11:18 | Progress Note ---
Assessment and Plan Assessment and plan: 84-year-old male with PMHx of CAD, s/p pacemaker, HDL, GERD, hernia repair x 3, who was brought to the ER with the complaint of abdominal pain. Pt states that the pain was of an intensity of 10 out of 10, it was located in the right upper quadrant of the abdomen, radiating to the upper back. Pt states that the pain was associated with nausea and vomiting and lasted a few hours, his called EMS who took him to the ER for evaluation. Pt's blood pressure was reported to be elevated prior to coming to the ER (197/128), pt had a CT scan of the abdomen that showed gallbladder wall appears borderline thickened which could be seen with cholecystitis. General surgery was consulted * Surgery evaluated and Consulted GI, MRCP was not obtainable due to Pacemaker * LFT improving and patient tolerating diet, Will monitor for additional day and advance diet, if worsening will proceed to ERCP and if improving will discharge in am * Tolerated clear liquid todY - Patient Problems (1) Choledocholithiasis with acute cholecystitis Current Visit: Yes Status: Acute Plan to address problem: For ERCP tomorrow Cholecstytis mild.No cholectectomy at this point. Hold lovenox for possible ERCP (2) Transaminitis Current Visit: Yes Status: Acute Plan to address problem: Improving (3) Pancreatitis, acute Current Visit: Yes Status: Acute Qualifiers: Acute pancreatitis complication: unspecified Plan to address problem: Improving Sec to Gall stone. (4) Hyperlipidemia Current Visit: No Status: Chronic Qualifiers: Hyperlipidemia type: mixed hyperlipidemia Qualified Code(s): E78.2 - Mixed hyperlipidemia Plan to address problem: Hold statins for now. (5) Hypertension Current Visit: No Status: Chronic Qualifiers: Hypertension type: essential hypertension Qualified Code(s): I10 - Essential (primary) hypertension Plan to address problem: Will hold oral antihypertensives. Started on catapress patch. (6) Anemia Current Visit: Yes Status: Chronic Qualifiers: Anemia type: unspecified type Qualified Code(s): D64.9 - Anemia, u nspecified Plan to address problem: Check Iron and Folic acid level and B12 level. (7) DVT prophylaxis Current Visit: Yes Status: Acute Plan to address problem: On Lovenox and GI prophyaxis Discussed with patient and family. History Interval history: Patient seen and examined this morning, doing well, no new complaints. Family reported some night time confusion likely from owing (Daughter is Nurse) also some episode of constipation. Hospitalist Physical - Constitutional Vitals: Temp Pulse Resp BP Pulse Ox 99.0 F 53 L 20 113/73 94 04/15/19 07:24 04/15/19 07:24 04/15/19 07:24 04/15/19 07:24 04/15/19 07:24 General appearance: Present: no acute distress, well-nourished - EENT Eyes: Present: PERRL, EOM intact ENT: hearing intact, clear oral mucosa - Neck Neck: Present: supple, normal ROM - Respiratory Respiratory effort: normal Respiratory: bilateral: CTA - Cardiovascular Rhythm: regular Heart Sounds: Present: S1 & S2. Absent: systolic murmur, diastolic murmur - Extremities Extremities: no ischemia, pulses intact, pulses symmetrical, No edema, normal temperature, normal color, Full ROM Peripheral Pulses: within normal limits - Abdominal General gastrointestinal: soft, non-tender, non-distended, normal bowel sounds - Integumentary Integumentary: Present: clear, warm, dry - Psychiatric Psychiatric: appropriate mood/affect, intact judgment & insight, memory intact - Neurologic Neurologic: CNII-XII intact, moves all extremities - Allied Health Allied health notes reviewed: nursing Results - Labs CBC & Chem 7: 04/14/19 05:17 04/15/19 05:52 Labs: Laboratory Last Values WBC 4.9 K/mm3 (4.5-11.0) 04/14/19 05:17 RBC 3.36 M/mm3 (3.65-5.03) L 04/14/19 05:17 Hgb 10.7 gm/dl (11.8-15.2) L 04/14/19 05:17 Hct 32.4 % (35.5-45.6) L 04/14/19 05:17 MCV 96 fl (84-94) H 04/14/19 05:17 MCH 32 pg (28-32) 04/14/19 05:17 MCHC 33 % (32-34) 04/14/19 05:17 RDW 15.5 % (13.2-15.2) H 04/14/19 05:17 Plt Count 105 K/mm3 (140-440) L 04/14/19 05:17 Lymph % (Auto) 6.1 % (13.4-35.0) L 04/13/19 07:37 [place] % (Auto) 9.9 % (0.0-7.3) H 04/13/19 07:37 Eos % (Auto) 0.0 % (0.0-4.3) 04/13/19 07:37 Baso % (Auto) 0.3 % (0.0-1.8) 04/13/19 07:37 Lymph # 0.6 K/mm3 (1.2-5.4) L 04/13/19 07:37 [place] # 0.9 K/mm3 (0.0-0.8) H 04/13/19 07:37 Eos # 0.0 K/mm3 (0.0-0.4) 04/13/19 07:37 Baso # 0.0 K/mm3 (0.0-0.1) 04/13/19 07:37 Seg Neutrophils % 83.7 % (40.0-70.0) H 04/13/19 07:37 Seg Neutrophils # 7.9 K/mm3 (1.8-7.7) H 04/13/19 07:37 D-Dimer 646.18 ng/mlDDU (0-234) H 04/12/19 23:01 Sodium 146 mmol/L (137-145) H 04/15/19 05:52 Potassium 4.2 mmol/L (3.6-5.0) 04/15/19 05:52 Chloride 111.3 mmol/L (98-107) H 04/15/19 05:52 Carbon Dioxide 21 mmol/L (22-30) L 04/15/19 05:52 Anion Gap 18 mmol/L 04/15/19 05:52 BUN 20 mg/dL (9-20) 04/15/19 05:52 Creatinine 1.5 mg/dL (0.8-1.5) 04/15/19 05:52 Estimated GFR 44 ml/min 04/15/19 05:52 BUN/Creatinine Ratio 13 % 04/15/19 05:52 Glucose 94 mg/dL (75-100) 04/15/19 05:52 POC Glucose 93 (70-105) 04/15/19 07:34 Calcium 8.6 mg/dL (8.4-10.2) 04/15/19 05:52 Iron 21 ug/dL (49-181) L 04/14/19 13:39 TIBC 234 mcg/dL (250-450) L 04/14/19 13:39 % Saturation 8.97 % 04/14/19 13:39 Transferrin 195 mg/dl (180-329) 04/14/19 13:39 Total Bilirubin 1.20 mg/dL (0.1-1.2) 04/15/19 05:52 Direct Bilirubin 1.6 mg/dL (0-0.2) H 04/13/19 00:15 Indirect Bilirubin 0.8 mg/dL 04/13/19 00:15 AST 98 units/L (5-40) H 04/15/19 05:52 ALT 134 units/L (7-56) H 04/15/19 05:52 Alkaline Phosphatase 179 units/L (35-129) H 04/15/19 05:52 Troponin T 0.011 ng/mL (0.00-0.029) 04/13/19 03:25 NT-Pro-B Natriuret Pep 955.1 pg/mL (0-900) H 04/12/19 23:01 Total Protein 6.2 g/dL (6.3-8.2) L 04/15/19 05:52 Albumin 3.3 g/dL (3.9-5) L 04/15/19 05:52 Albumin/Globulin Ratio 1.1 % 04/15/19 05:52 Lipase 24 units/L (13-60) 04/14/19 05:17 Vitamin B12 150.0 pg/mL (211-911) L 04/14/19 13:39 Active Medications - Current Medications Current Medications: Generic Name Dose Route Start Last Admin Trade Name Freq PRN Reason Stop Dose Admin Acetaminophen 650 mg 04/14/19 09:30 04/14/19 21:37 Tylenol PO 650 mg Q6H PRN Administration Pain MILD(1-3)/Fever >100.5/LUNA Clonidine HCl 0.2 mg 04/14/19 14:00 04/14/19 14:46 Catapres-Tts Patch TD 0.2 mg Royal PETE Administration Docusate Sodium 100 mg 04/15/19 12:00 Colace PO BID PETE Enoxaparin Sodium 30 mg 04/13/19 10:00 04/15/19 09:37 Lovenox SUB-Q 30 mg QDAY PETE Administration Sodium Chloride 1,000 mls @ 100 mls/hr 04/13/19 07:00 04/15/19 05:31 Nacl 0.9% 1000 Ml IV 125 mls/hr DIRECT PETE Administration Piperacillin Sod/Tazobactam Sod 2.25 gm in 50 mls @ 100 mls/hr 04/13/19 12:00 04/15/19 05:26 Zosyn/Ns 2.25 Gm/50ml IV 100 mls/hr Q6HR PETE Administration Protocol Melatonin 10 mg 04/15/19 22:00 Melatonin PO QHS PRN Sleep Morphine Sulfate 1 mg 04/13/19 06:28 04/13/19 20:02 Morphine IV 1 mg Q4H PRN Administration Pain, Moderate (4-6) Ondansetron HCl 4 mg 04/13/19 02:54 Zofran IV Q8H PRN Nausea And Vomiting Pantoprazole Sodium 40 mg 04/14/19 10:00 04/15/19 09:38 Protonix PO 40 mg QDAY PETE Administration Sodium Chloride 10 ml 04/13/19 10:00 04/15/19 09:38 Sodium Chloride Flush Syringe 10 Ml IV 10 ml BID PETE Administration Sodium Chloride 10 ml 04/13/19 02:54 Sodium Chloride Flush Syringe 10 Ml IV PRN PRN LINE FLUSH
[2019-04-15] MEDS: COLACE PO SCH ×2 (11:45→21:34)
--- NOTE | 2019-04-15 12:02 | Progress Note ---
Assessment and Plan 84 yo M with 1. RUQ pain - resolved 2. elevated bilirubin secondary to choledocolithiasis - resolved 3. transaminitis 4. pancreatitis secondary to gallstone - resolved CT scan A/P - gallbladder wall mildly thickened, possible early cholecystitis. No stones. RUQ U/s - mildly thickened gallbladder wall, no stones Plan: Bilirubin is normal today, likely passed stone. 1. ok to adv to cardiac diet 2. abx - zosyn 3. GI consult noted and recs appreciated - d/w Dr. Ch today. Repeat Lfts, bili tomorrow. If continue to improve, will cancel ERCP 4. cards consult noted - patient moderate risk for surgery 5. DVT ppx 6. As patient has no gallstones seen on U/s and his symptoms are improving, his risk for recurrent choledocolithiasis is minimal. Although I did discuss cholecystectomy as an option with the patient and his family, I would not recommend it at this time. If no ERCP planned, patient may be discharged tomorrow with PO abx (10 days total) Thank you, please call with questions Subjective Date of service: 04/15/19 Narrative: Pt seen and examined. No acute complaints. Per daughter, patient had a good night and slept well. No f/c, cp, sob, n/v, abd pain. Objective Vital Signs - 12hr 04/15/19 04/15/19 04/15/19 02:37 02:49 07:24 Temperature 97.8 F 99.0 F Pulse Rate 65 53 L Respiratory 18 20 Rate Blood Pressure 100/53 113/73 O2 Sat by Pulse 96 94 Oximetry - General physical appearance Narrative Exam: Gen; AAOx3. NAD CV: s1, S2+ resp: even and unlabored Abd: soft, NT, ND Ext: no c/c/e well developed - Labs 04/14/19 05:17 04/15/19 05:52 Diabetes panel 04/15/19 Range/Units 05:52 Sodium 146 H (137-145) mmol/L Potassium 4.2 (3.6-5.0) mmol/L Chloride 111.3 H (98-107) mmol/L Carbon Dioxide 21 L (22-30) mmol/L BUN 20 (9-20) mg/dL Creatinine 1.5 (0.8-1.5) mg/dL Glucose 94 (75-100) mg/dL Calcium 8.6 (8.4-10.2) mg/dL AST 98 H (5-40) units/L ALT 134 H (7-56) units/L Alkaline Phosphatase 179 H (35-129) units/L Total Protein 6.2 L (6.3-8.2) g/dL Albumin 3.3 L (3.9-5) g/dL Calcium panel 04/15/19 Range/Units 05:52 Calcium 8.6 (8.4-10.2) mg/dL Albumin 3.3 L (3.9-5) g/dL Pituitary panel 04/15/19 Range/Units 05:52 Sodium 146 H (137-145) mmol/L Potassium 4.2 (3.6-5.0) mmol/L Chloride 111.3 H (98-107) mmol/L Carbon Dioxide 21 L (22-30) mmol/L BUN 20 (9-20) mg/dL Creatinine 1.5 (0.8-1.5) mg/dL Glucose 94 (75-100) mg/dL Calcium 8.6 (8.4-10.2) mg/dL Adrenal panel 04/15/19 Range/Units 05:52 Sodium 146 H (137-145) mmol/L Potassium 4.2 (3.6-5.0) mmol/L Chloride 111.3 H (98-107) mmol/L Carbon Dioxide 21 L (22-30) mmol/L BUN 20 (9-20) mg/dL Creatinine 1.5 (0.8-1.5) mg/dL Glucose 94 (75-100) mg/dL Calcium 8.6 (8.4-10.2) mg/dL Total Bilirubin 1.20 (0.1-1.2) mg/dL AST 98 H (5-40) units/L ALT 134 H (7-56) units/L Alkaline Phosphatase 179 H (35-129) units/L Total Protein 6.2 L (6.3-8.2) g/dL Albumin 3.3 L (3.9-5) g/dL
[2019-04-15] MEDS: MORPHINE IV PRN (15:59)
[2019-04-15] MEDS ORDERED: MELATONIN PO PRN (22:00)
[2019-04-16] MEDS: ZOSYN/NS 2.25 GM/50ML 2.25 GM/50 ML BAG IV SCH ×4 (05:48→23:20)
[2019-04-16 05:50] LABS: Basophils % (Auto) 0.3 % (0.0-1.8); Eosinophils # (Auto) 0.1 K/mm3 (0.0-0.4); Eosinophils % (Auto) 2.2 % (0.0-4.3); Hematocrit 34.2 % (35.5-45.6); Hemoglobin 11.4 gm/dl (11.8-15.2); Lymphocytes # (Auto) 1.3 K/mm3 (1.2-5.4); Mean Corpuscular HGB Conc 33 % (32-34); Mean Corpuscular Volume 95 fl (84-94); Monocytes # (Auto) 0.5 K/mm3 (0.0-0.8); Monocytes % (Auto) 10.3 % (0.0-7.3); Platelet Count 142 K/mm3 (140-440); Red Blood Count 3.59 M/mm3 (3.65-5.03); Red Cell Distribution Width 15.6 % (13.2-15.2)
[2019-04-16 06:01] LABS: INR 1.29 (0.87-1.13)
[2019-04-16 06:21] LABS: Albumin 3.5 g/dL (3.9-5); Calcium 8.6 mg/dL (8.4-10.2)
[2019-04-16] MEDS: PROTONIX PO SCH ×2 (08:58→10:44)
[2019-04-16] MEDS: COLACE PO SCH ×3 (08:58→21:42)
[2019-04-16] MEDS: SODIUM CHLORIDE FLUSH SYRINGE 10 ML IV SCH ×2 (08:59→21:42)
--- NOTE | 2019-04-16 11:38 | Progress Note ---
Assessment and Plan Acute cholecystitis Acute liver elevated enzymes Acute renal efficiency Cardiomyopathy compensated LV dysfunction Pacemaker Hypertension Hyperlipidemia dementia rec: Pt for ERCP today. patient has no cardiac contraindication for GI procedure. Once patient is able take oral feeds to reinitiate home medications. The patient has been seen in conjunction with DR. SHAI Ernst who agrees with the assessment and plan of care. Subjective Date of service: 04/16/19 Principal diagnosis: elevated LFTs Interval history: pt resting in bed, no current cardiac complaints, for ERCP today. Objective Last Vital Signs Temp 99.2 F 04/16/19 07:34 Pulse 56 L 04/16/19 07:34 Resp 20 04/16/19 07:34 BP 135/63 04/16/19 07:34 Pulse Ox 92 04/16/19 07:34 - Physical Examination General: Appears Well HEENT: Positive: PERRL, Mucus Membranes Moist Neck: Positive: neck supple, trachea midline Cardiac: Positive: Reg Rate and Rhythm, S1/S2 Lungs: Positive: Decreased Breath Sounds Neuro: Positive: Grossly Intact Abdomen: Positive: Soft, Active Bowel Sounds, Tender Skin: Positive: Clear Incision: Cardiac Cath Site Musculoskeletal: No Pain, Normal Range of Motion Extremities: Present: normal. Absent: edema - Labs and Meds Cardiac Enzymes 04/16/19 Range/Units 05:32 AST 173 H (5-40) units/L Coagulation 04/16/19 Range/Units 05:32 PT 15.8 H (12.2-14.9) Sec. INR 1.29 H (0.87-1.13) CBC 04/16/19 Range/Units 05:32 WBC 5.3 (4.5-11.0) K/mm3 RBC 3.59 L (3.65-5.03) M/mm3 Hgb 11.4 L (11.8-15.2) gm/dl Hct 34.2 L (35.5-45.6) % Plt Count 142 (140-440) K/mm3 Lymph # 1.3 (1.2-5.4) K/mm3 [place] # 0.5 (0.0-0.8) K/mm3 Eos # 0.1 (0.0-0.4) K/mm3 Baso # 0.0 (0.0-0.1) K/mm3 Comprehensive Metabolic Panel 04/16/19 Range/Units 05:32 Sodium 144 (137-145) mmol/L Potassium 4.3 (3.6-5.0) mmol/L Chloride 109.4 H (98-107) mmol/L Carbon Dioxide 20 L (22-30) mmol/L BUN 17 (9-20) mg/dL Creatinine 1.5 (0.8-1.5) mg/dL Glucose 89 (75-100) mg/dL Calcium 8.6 (8.4-10.2) mg/dL AST 173 H (5-40) units/L ALT 198 H (7-56) units/L Alkaline Phosphatase 235 H (35-129) units/L Total Protein 6.4 (6.3-8.2) g/dL Albumin 3.5 L (3.9-5) g/dL - Imaging and Cardiology Echo: report reviewed (04/04/2019 moderate LV dysfunction EF 30-35% with mild mitral regurgitation and mild tricuspid regurgitation)
[2019-04-16] MEDS ORDERED: NACL 0.9% 100 ML ONE (11:52)
[2019-04-16] MEDS ORDERED: WATER FOR IRRIG STERILE IR ONE (11:52)
[2019-04-16] MEDS ORDERED: NACL 0.9% 1000 ML 1,000 ML ONE (11:53)
--- NOTE | 2019-04-16 12:07 | Progress Note ---
Assessment and Plan 84 yo M with 1. RUQ pain 2. elevated bilirubin secondary to choledocolithiasis 3. transaminitis 4. pancreatitis secondary to gallstone - resolved CT scan A/P - gallbladder wall mildly thickened, possible early cholecystitis. No stones. RUQ U/s - mildly thickened gallbladder wall, no stones Plan: Bilirubin and LFTs trending up 1. NPO for ERCP today 2. abx - zosyn 3. GI consult noted and recs appreciated - d/w Dr. Ch today. ERCP today 4. cards consult noted - patient moderate risk for surgery 5. DVT ppx 6. If patient's symptoms resolve post ERCP and he is tolerating reg diet, he may be discharged to home. If his symptoms persist, will discuss cholecystectomy. Family updated. Thank you, please call with questions Subjective Date of service: 04/16/19 Narrative: Pt seen in follow up. Had upper abdominal pain, n/v after eating dinner last night. No f/c. Feels ok this am. Objective Vital Signs - 12hr 04/16/19 04/16/19 02:11 07:34 Temperature 98.3 F 99.2 F Pulse Rate 64 56 L Respiratory 18 20 Rate Blood Pressure 115/56 135/63 O2 Sat by Pulse 94 92 Oximetry - General physical appearance Narrative Exam: Gen: AAOx3. NAD CV: s1, S2+ Resp: even and unlabored Abd: soft, ND, NT Ext: no c/c/e - Labs 04/16/19 05:32 04/16/19 05:32 Diabetes panel 04/16/19 Range/Units 05:32 Sodium 144 (137-145) mmol/L Potassium 4.3 (3.6-5.0) mmol/L Chloride 109.4 H (98-107) mmol/L Carbon Dioxide 20 L (22-30) mmol/L BUN 17 (9-20) mg/dL Creatinine 1.5 (0.8-1.5) mg/dL Glucose 89 (75-100) mg/dL Calcium 8.6 (8.4-10.2) mg/dL AST 173 H (5-40) units/L ALT 198 H (7-56) units/L Alkaline Phosphatase 235 H (35-129) units/L Total Protein 6.4 (6.3-8.2) g/dL Albumin 3.5 L (3.9-5) g/dL Calcium panel 04/16/19 Range/Units 05:32 Calcium 8.6 (8.4-10.2) mg/dL Albumin 3.5 L (3.9-5) g/dL Pituitary panel 04/16/19 Range/Units 05:32 Sodium 144 (137-145) mmol/L Potassium 4.3 (3.6-5.0) mmol/L Chloride 109.4 H (98-107) mmol/L Carbon Dioxide 20 L (22-30) mmol/L BUN 17 (9-20) mg/dL Creatinine 1.5 (0.8-1.5) mg/dL Glucose 89 (75-100) mg/dL Calcium 8.6 (8.4-10.2) mg/dL Adrenal panel 04/16/19 Range/Units 05:32 Sodium 144 (137-145) mmol/L Potassium 4.3 (3.6-5.0) mmol/L Chloride 109.4 H (98-107) mmol/L Carbon Dioxide 20 L (22-30) mmol/L BUN 17 (9-20) mg/dL Creatinine 1.5 (0.8-1.5) mg/dL Glucose 89 (75-100) mg/dL Calcium 8.6 (8.4-10.2) mg/dL Total Bilirubin 1.40 H (0.1-1.2) mg/dL AST 173 H (5-40) units/L ALT 198 H (7-56) units/L Alkaline Phosphatase 235 H (35-129) units/L Total Protein 6.4 (6.3-8.2) g/dL Albumin 3.5 L (3.9-5) g/dL
--- NOTE | 2019-04-16 12:32 | Anesthesia Day of Surgery ---
Anesthesia Day of Surgery - Day of Surgery Patient Examined: Yes Patient H&P Reviewed: Yes Patient is NPO: Yes Cardiac Clearance: Yes
--- NOTE | 2019-04-16 12:32 | Anesthesia Consultation ---
Anesthesia Consult and Med Hx Date of service: 04/16/19 - Airway Anesthetic Teeth Evaluation: Good ROM Head & Neck: Adequate Mental/Hyoid Distance: Adequate Mallampati Class: Class III Intubation Access Assessment: Possibly Difficult - Pulmonary Exam CTA: Yes - Cardiac Exam Cardiac Exam: RRR - Pre-Operative Health Status ASA Pre-Surgery Classification: ASA3 Proposed Anesthetic Plan: MAC - Pulmonary Hx Smoking: Yes (quit 50yrs ago) Hx Respiratory Symptoms: No - Cardiovascular System Hx Hypertension: Yes Hx Coronary Artery Disease: Yes (EF 30-35%) Hx Heart Attack/AMI: No Hx Percutaneous Transluminal Coronary Angioplasty (PTCA): No Hx Pacemaker: Yes (EKG A-sensed, V-paced) Hx Internal Defibrillator: No - Central Nervous System CVA: No - Gastrointestinal Hx Gastroesophageal Reflux Disease: Yes - Endocrine Hx Renal Disease: Yes (ANA vs CKD) Hx Liver Disease: Yes (transaminitis) Hx Insulin Dependent Diabetes: No Hx Non-Insulin Dependent Diabetes: No Hx Thyroid Disease: No - Hematic Hx Anemia: Yes
[2019-04-16] MEDS: NACL 0.9% 1000 ML 1,000 ML IV SCH ×2 (12:36→16:29)
[2019-04-16] MEDS ORDERED: DIPRIVAN 10 MG/ML IV ONE ×2 (13:28→13:29)
[2019-04-16] MEDS ORDERED: XYLOCAINE MPF 2% ONE (13:29)
[2019-04-16] MEDS ORDERED: KETAMINE 50 MG/ML-WATER SYRING ONE (13:29)
--- NOTE | 2019-04-16 13:33 | Progress Note ---
Assessment and Plan Assessment and plan: 84-year-old male with PMHx of CAD, s/p pacemaker, HDL, GERD, hernia repair x 3, who was brought to the ER with the complaint of abdominal pain. Pt states that the pain was of an intensity of 10 out of 10, it was located in the right upper quadrant of the abdomen, radiating to the upper back. Pt states that the pain was associated with nausea and vomiting and lasted a few hours, his called EMS who took him to the ER for evaluation. Pt's blood pressure was reported to be elevated prior to coming to the ER (197/128), pt had a CT scan of the abdomen that showed gallbladder wall appears borderline thickened which could be seen with cholecystitis. General surgery was consulted Surgery evaluated and Consulted GI, MRCP was not obtainable due to Pacemaker LFT improving and patient tolerating diet, Will monitor for additional day and advance diet, if worsening will proceed to ERCP and if improving will discharge in am Tolerated clear liquid todY - Patient Problems (1) Choledocholithiasis with acute cholecystitis ERCP today Cholecstytis mild. No cholectectomy at this point. Hold lovenox for ERCP (2) Transaminitis - Worsened - Will have ERCP this morning (3) Pancreatitis, acute Improving Sec to Gall stone. (4) Hyperlipidemia Hold statins for now. (5) Hypertension controlled continue on catapress patch. (6) Anemia H/H stable Iron study was done Vitamin b12 is normal (7) DVT prophylaxis On Lovenox and GI prophyaxis Discussed with patient and family. History Interval history: Patient was seen and evaluated this morning, patient doesn't have any abdominal pain. Hospitalist Physical - Physical exam Narrative exam: Not in cardiopulmonary distress. The patient appeared well nourished and normally developed. Vital signs as documented. Head exam is unremarkable. No scleral icterus . Neck is without jugular venous distension, thyromegaly, or carotid bruits. Lungs are clear to auscultation. Cardiac exam reveals regular rate and Rhythm. Abdominal exam reveals normal bowel sounds. Extremities are nonedematous and both femoral and pedal pulses are normal. DESKTOP ANALYST: Alert and oriented 3. No focal weakness. - Constitutional Vitals: Temp Pulse Resp BP Pulse Ox 98.9 F 65 13 140/65 95 04/16/19 12:15 04/16/19 12:15 04/16/19 12:15 04/16/19 12:15 04/16/19 12:15 General appearance: Present: no acute distress, well-nourished Results - Labs CBC & Chem 7: 04/16/19 05:32 04/16/19 05:32 Labs: Laboratory Last Values WBC 5.3 K/mm3 (4.5-11.0) 04/16/19 05:32 RBC 3.59 M/mm3 (3.65-5.03) L 04/16/19 05:32 Hgb 11.4 gm/dl (11.8-15.2) L 04/16/19 05:32 Hct 34.2 % (35.5-45.6) L 04/16/19 05:32 MCV 95 fl (84-94) H 04/16/19 05:32 MCH 32 pg (28-32) 04/16/19 05:32 MCHC 33 % (32-34) 04/16/19 05:32 RDW 15.6 % (13.2-15.2) H 04/16/19 05:32 Plt Count 142 K/mm3 (140-440) 04/16/19 05:32 Lymph % (Auto) 25.0 % (13.4-35.0) 04/16/19 05:32 [place] % (Auto) 10.3 % (0.0-7.3) H 04/16/19 05:32 Eos % (Auto) 2.2 % (0.0-4.3) 04/16/19 05:32 Baso % (Auto) 0.3 % (0.0-1.8) 04/16/19 05:32 Lymph # 1.3 K/mm3 (1.2-5.4) 04/16/19 05:32 [place] # 0.5 K/mm3 (0.0-0.8) 04/16/19 05:32 Eos # 0.1 K/mm3 (0.0-0.4) 04/16/19 05:32 Baso # 0.0 K/mm3 (0.0-0.1) 04/16/19 05:32 Seg Neutrophils % 62.2 % (40.0-70.0) 04/16/19 05:32 Seg Neutrophils # 3.3 K/mm3 (1.8-7.7) 04/16/19 05:32 PT 15.8 Sec. (12.2-14.9) H 04/16/19 05:32 INR 1.29 (0.87-1.13) H 04/16/19 05:32 D-Dimer 646.18 ng/mlDDU (0-234) H 04/12/19 23:01 Sodium 144 mmol/L (137-145) 04/16/19 05:32 Potassium 4.3 mmol/L (3.6-5.0) 04/16/19 05:32 Chloride 109.4 mmol/L (98-107) H 04/16/19 05:32 Carbon Dioxide 20 mmol/L (22-30) L 04/16/19 05:32 Anion Gap 19 mmol/L 04/16/19 05:32 BUN 17 mg/dL (9-20) 04/16/19 05:32 Creatinine 1.5 mg/dL (0.8-1.5) 04/16/19 05:32 Estimated GFR 44 ml/min 04/16/19 05:32 BUN/Creatinine Ratio 11 % 04/16/19 05:32 Glucose 89 mg/dL (75-100) 04/16/19 05:32 POC Glucose 89 (70-105) 04/16/19 11:25 Calcium 8.6 mg/dL (8.4-10.2) 04/16/19 05:32 Iron 21 ug/dL (49-181) L 04/14/19 13:39 TIBC 234 mcg/dL (250-450) L 04/14/19 13:39 % Saturation 8.97 % 04/14/19 13:39 Transferrin 195 mg/dl (180-329) 04/14/19 13:39 Total Bilirubin 1.40 mg/dL (0.1-1.2) H 04/16/19 05:32 Direct Bilirubin 1.6 mg/dL (0-0.2) H 04/13/19 00:15 Indirect Bilirubin 0.8 mg/dL 04/13/19 00:15 AST 173 units/L (5-40) H 04/16/19 05:32 ALT 198 units/L (7-56) H 04/16/19 05:32 Alkaline Phosphatase 235 units/L (35-129) H 04/16/19 05:32 Troponin T 0.011 ng/mL (0.00-0.029) 04/13/19 03:25 NT-Pro-B Natriuret Pep 955.1 pg/mL (0-900) H 04/12/19 23:01 Total Protein 6.4 g/dL (6.3-8.2) 04/16/19 05:32 Albumin 3.5 g/dL (3.9-5) L 04/16/19 05:32 Albumin/Globulin Ratio 1.2 % 04/16/19 05:32 Lipase 24 units/L (13-60) 04/14/19 05:17 Vitamin B12 150.0 pg/mL (211-911) L 04/14/19 13:39 Active Medications - Current Medications Current Medications: Generic Name Dose Route Start Last Admin Trade Name Freq PRN Reason Stop Dose Admin Acetaminophen 650 mg 04/14/19 09:30 04/14/19 21:37 Tylenol PO 650 mg Q6H PRN Administration Pain MILD(1-3)/Fever >100.5/LUNA Clonidine HCl 0.2 mg 04/14/19 14:00 04/14/19 14:46 Catapres-Tts Patch TD 0.2 mg Royal PETE Administration Docusate Sodium 100 mg 04/15/19 12:00 04/16/19 10:44 Colace PO Not Given BID PETE Piperacillin Sod/Tazobactam Sod 2.25 gm in 50 mls @ 100 mls/hr 04/13/19 12:00 04/16/19 05:48 Zosyn/Ns 2.25 Gm/50ml IV 100 mls/hr Q6HR PETE Administration Protocol Sodium Chloride 1,000 mls @ 50 mls/hr 04/16/19 12:00 04/16/19 12:36 Nacl 0.9% 1000 Ml IV 50 mls/hr DIRECT PETE Administration Sodium Chloride 1,000 mls @ 50 mls/hr 04/16/19 13:00 Nacl 0.9% 1000 Ml IV DIRECT PTEE Melatonin 10 mg 04/15/19 22:00 Melatonin PO QHS PRN Sleep Morphine Sulfate 1 mg 04/13/19 06:28 04/15/19 15:59 Morphine IV 1 mg Q4H PRN Administration Pain, Moderate (4-6) Ondansetron HCl 4 mg 04/13/19 02:54 04/15/19 17:04 Zofran IV 4 mg Q8H PRN Administration Nausea And Vomiting Pantoprazole Sodium 40 mg 04/14/19 10:00 04/16/19 10:44 Protonix PO Not Given QDAY PETE Sodium Chloride 10 ml 04/13/19 10:00 04/16/19 08:59 Sodium Chloride Flush Syringe 10 Ml IV 10 ml BID PETE Administration Sodium Chloride 10 ml 04/13/19 02:54 Sodium Chloride Flush Syringe 10 Ml IV PRN PRN LINE FLUSH
--- NOTE | 2019-04-16 14:16 | Post Operative Note ---
Pre-op diagnosis: Dilated CBD, Abnl LFTs Post-op diagnosis: other (Mild ampullary stenosis) Findings: 1. Normal external ampulla. 2. PD not cannulated. 3. CBD cannulated with Dreamtome/0.035 guidewire. - Mildly dilated to 7mm. - Questionable distal filling defect. - Medium sphincterotomy performed. - 9mm balloon swept through CBD x 2 without stone. 4. Cystic duct partially filled (not obstructed). Procedure: ERCP with biliary sphincterotomy and balloon sweeping of bile duct Anesthesia: MAC Surgeon: AVELINA JEFFREY Estimated blood loss: minimal Pathology: none Specimen disposition: other (N/A) Condition: stable Disposition: floor (Recs: 1. 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 2. Will advance diet and monitor LFTs in the AM. 3. If not resolved, agree with Surgery CCY may be of benefit.)
--- NOTE | 2019-04-16 14:27 | Operative Report ---
PROCEDURE PERFORMED: Endoscopic retrograde cholangiopancreatography with biliary sphincterotomy and balloon sweeping of the common bile duct. PREOPERATIVE DIAGNOSIS: Abnormal liver enzymes and dilated common bile duct. 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 ENDOSCOPIST: Óscar Ch M.D. INSTRUMENT: Olympus video endoscope. MEDICATIONS: MAC anesthesia by [facility]. COMPLICATIONS: No apparent complications. ESTIMATED BLOOD LOSS: Minimal. SPECIMENS: None. IMPLANTS: None. ASSISTANTS: None. CONDITION AT COMPLETION: Stable. TECHNIQUE: The patient was informed of the risks and benefits of the procedure. He signed the informed consent to proceed. He was placed in the prone position. The above sedative medications were given. His vital signs remained stable throughout the procedure. The instrument was advanced from the mouth to the second portion of the duodenum under direct visualization. At that point, the bowel was insufflated and the endoscope was slowly withdrawn. The ampulla was visualized and normal in external appearance. We cannulated the common bile duct using a Dreamtome and a 0.035 guidewire, the common bile duct was dilated to approximately 7 mm and there was an apparent filling defect in the distal most aspect. A medium sized sphincterotomy was performed and a 9 mm balloon was swept twice through the common bile duct, but there was no evidence of residual stone or sludge and it was felt that the filling defect was probably artifact. There was good flow of bile into the duodenum, and then the procedure was terminated. FINDINGS: 1. Normal external appearance to the ampulla. 2. The pancreatic duct was not cannulated or injected during this procedure. 3. The common bile duct was cannulated using a Dreamtome and a 0.035 guidewire. A. The common bile duct was noted to be dilated to approximately 7 mm. B. There was a questionable small filling defect versus artifact in the distal most portion of the duct. C. Medium sized sphincterotomy was performed. D. A 9 mm balloon was swept twice through the common bile duct without removal of stone and the filling defect was presumed to be an artifact. 4. The cystic duct was partially filled/not obstructed. RECOMMENDATIONS: 1. 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 2. We will advance his diet, monitor liver enzymes in the morning. 3. If not resolved, I agree with surgery that cholecystectomy may be of benefit. JOB# [id number] ILENE/NTS
--- NOTE | 2019-04-16 14:36 | Post Anesthesia Evaluation ---
- Post Anesthesia Evaluation Patient Participated: Yes Airway Patent: Yes Stable Respiratory Function: Yes Nausea/Vomiting: No Temp > 96.8F: Yes Pain Manageable: Yes Adequeate Hydration: Yes Anesthesia Complications: No
--- NOTE | 2019-04-16 15:43 | Fluoroscopy Report ---
FLUOROSCOPY ERCP BILIARY DUCT HISTORY: Abnormal liver function tests FINDINGS: 33 seconds of fluoroscopy time was provided by radiology during ERCP by gastroenterology. 6 fluoroscopic images of the right upper quadrant are presented demonstrating contrast agent in the bi liary tree. No filling defects consistent with stones is identified. The procedural notes mention amp ullary stenosis is present. Balloon sweep of the common bile duct was performed. Papillotomy was perf ormed. The pancreatic duct was not injected. Please correlate with the procedural report by gastroent erology if needed. Signer Name: Momo Nazario Jr, MD Signed: 04/16/2019 3:38 PM Workstation Name: [id number]
[2019-04-16] MEDS ORDERED: NACL 0.9% 1000 ML 1,000 ML IV SCH (16:09)
[2019-04-16] MEDS: FEOSOL PO SCH (16:28)
[2019-04-16] MEDS: VITAMIN B-12 PO SCH ×2 (16:28→18:10)
[2019-04-17] MEDS: ZOSYN/NS 2.25 GM/50ML 2.25 GM/50 ML BAG IV SCH (05:43)
[2019-04-17 06:27] LABS: Basophils % (Auto) 0.3 % (0.0-1.8); Eosinophils # (Auto) 0.2 K/mm3 (0.0-0.4); Eosinophils % (Auto) 2.9 % (0.0-4.3); Hematocrit 34.6 % (35.5-45.6); Hemoglobin 11.5 gm/dl (11.8-15.2); Lymphocytes # (Auto) 1.3 K/mm3 (1.2-5.4); Lymphocytes % (Auto) 20.9 % (13.4-35.0); Mean Corpuscular HGB Conc 33 % (32-34); Mean Corpuscular Volume 96 fl (84-94); Monocytes # (Auto) 0.7 K/mm3 (0.0-0.8); Monocytes % (Auto) 10.4 % (0.0-7.3); Platelet Count 179 K/mm3 (140-440); Red Blood Count 3.61 M/mm3 (3.65-5.03); Red Cell Distribution Width 15.7 % (13.2-15.2)
[2019-04-17 06:50] LABS: Albumin 3.6 g/dL (3.9-5); Calcium 8.9 mg/dL (8.4-10.2)
[2019-04-17 08:23] VITALS: BP 134/61
[2019-04-17] MEDS: PROTONIX PO SCH (09:59)
[2019-04-17] MEDS: SODIUM CHLORIDE FLUSH SYRINGE 10 ML IV SCH (09:59)
[2019-04-17] MEDS: VITAMIN B-12 PO SCH (09:59)
[2019-04-17] MEDS: COLACE PO SCH (09:59)
[2019-04-17] MEDS: FEOSOL PO SCH (09:59)
--- NOTE | 2019-04-17 10:56 | Discharge Summary ---
Providers - Providers Date of Admission: 04/13/19 02:35 Date of discharge: 04/17/19 Attending physician: JED BEE MD 04/13/19 02:19 Consult to Physician [CONS] Routine Comment: Consulting Provider: NICOLE EDWARDS Physician Instructions: Reason For Exam: cholecystitis vs choledocholithiasis 04/13/19 06:12 Consult to Physician [CONS] Routine Comment: Consulting Provider: MARIBEL KRISHNAMURTHY Physician Instructions: Reason For Exam: cardiac clearance 04/13/19 11:34 Consult to Physician [CONS] Routine Comment: Consulting Provider: AVELINA JEFFREY Physician Instructions: patient with PPM, cannot get MRI Reason For Exam: elevated direct bilirubin, ?choledoco Primary care physician: RICH NELSON MD Hospitalization Reason for admission: choledocholithiasis, cholecystitis, pancreatitis Condition: Stable Pertinent studies: ERCP Hospital course: 84-year-old male with PMHx of CAD, s/p pacemaker, HDL, GERD, hernia repair x 3, who was brought to the ER with the complaint of abdominal pain. Pt states that the pain was of an intensity of 10 out of 10, it was located in the right upper quadrant of the abdomen, radiating to the upper back. Pt states that the pain was associated with nausea and vomiting and lasted a few hours, his called EMS who took him to the ER for evaluation. Pt's blood pressure was reported to be elevated prior to coming to the ER (197/128), pt had a CT scan of the abdomen that showed gallbladder wall appears borderline thickened which could be seen with cholecystitis. General surgery was consulted Surgery evaluated and Consulted GI, MRCP was not obtainable due to Pacemaker LFT improving and patient tolerating diet, patient improved and discharged Tolerated GI soft diet (1) Choledocholithiasis with acute cholecystitis Cholecstytis mild. No cholectectomy at this point. ERCP -Normal external ampulla. - PD not cannulated. - CBD cannulated with Dreamtome/0.035 guidewire. - Mildly dilated to 7mm. - Questionable distal filling defect. - Medium sphincterotomy performed. - 9mm balloon swept through CBD x 2 without stone. - Cystic duct partially filled (not obstructed). (2) Transaminitis - Improved (3) Pancreatitis, acute Resolved Sec to Gall stone. (4) Hyperlipidemia continue statins at discharged (5) Hypertension controlled; continue home medications at discharge. (6) Anemia H/H stable Iron study was done Vitamin b12 is normal Disposition: DC-01 TO HOME OR SELFCARE Time spent for discharge: 34 minutes - Discharge Diagnoses (1) Abdominal pain Status: Acute (2) Choledocholithiasis with acute cholecystitis Status: Acute (3) Pancreatitis, acute Status: Acute Qualifiers: Acute pancreatitis complication: unspecified (4) Transaminitis Status: Acute (5) Anemia Status: Chronic Qualifiers: Anemia type: unspecified type Qualified Code(s): D64.9 - Anemia, unspecified (6) SIRS without acute organ dysfunction due to non-infectious process Status: Acute Core Measure Documentation - Palliative Care Palliative Care/ Comfort Measures: Not Applicable - Core Measures Any of the following diagnoses?: none Exam - Physical Exam Narrative exam: Not in cardiopulmonary distress. The patient appeared well nourished and normally developed. Vital signs as documented. Head exam is unremarkable. No scleral icterus . Neck is without jugular venous distension, thyromegaly, or carotid bruits. Lungs are clear to auscultation. Cardiac exam reveals regular rate and Rhythm. Abdominal exam reveals normal bowel sounds. Extremities are nonedematous and both femoral and pedal pulses are normal. STRATEGY MANAGER: Alert and oriented 3. No focal weakness. - Constitutional Vitals: Temp Pulse Resp BP Pulse Ox 98.1 F 53 L 18 134/61 97 04/17/19 07:35 04/17/19 07:35 04/17/19 07:35 04/17/19 07:35 04/17/19 07:35 Plan Activity: no restrictions Weight Bearing Status: Full Weight Bearing Diet: low salt Follow up with: RICH NELSON MD [Primary Care Provider] - 7 Days Prescriptions: cephALEXin [Keflex] 500 mg PO Q8HR #15 cap
--- NOTE | 2019-04-17 11:36 | Gastroenterology Progress Note ---
Assessment and Plan 1.abdominal pain 2.transaminitis -afebrile -WBC WNL -abd CT and U/S-gallbladder wall mildly thickened, no stones -MRCP not possible (PPM) -etiology unclear-mild cholecystitis vs choledocholithiasis -s/p ERCP yesterday that showed likely mild ampullary stenosis (sphincterotomy and balloon sweeping of bile duct performed; no mass seen) -clinically, patient reports feeling better with no abd pain or N/V and LFTs now improving. Tolerating diet w/o complaints -surgery following with no recommendations for CCY at this time -continue antibiotics/supportive care -no further GI recommendations at this time -patient okay to be d/c per GI standpoint with f/u in clinic ~2-3 weeks Subjective Date of service: 04/17/19 Principal diagnosis: elevated LFTs Interval history: No acute distress. Denies abd pain or N/V. Tolerating diet. Objective - Constitutional Vitals: Temp Pulse Resp BP Pulse Ox 98.1 F 53 L 18 134/61 97 04/17/19 07:35 04/17/19 07:35 04/17/19 07:35 04/17/19 07:35 04/17/19 07:35 General appearance: no acute distress - EENT Eyes: PERRL, EOM intact ENT: hearing intact - Respiratory Respiratory effort: normal - Cardiovascular Rhythm: regular - Gastrointestinal General gastrointestinal: Present: soft, non-tender, non-distended, normal bowel sounds - Neurologic Neurological: oriented to person - Labs CBC & Chem 7: 04/17/19 05:53 04/17/19 05:53 Labs: Laboratory Results - last 24 hr 04/16/19 04/16/19 04/17/19 16:39 22:19 05:53 WBC 6.3 RBC 3.61 L Hgb 11.5 L Hct 34.6 L MCV 96 H MCH 32 MCHC 33 RDW 15.7 H Plt Count 179 Lymph % (Auto) 20.9 [place] % (Auto) 10.4 H Eos % (Auto) 2.9 Baso % (Auto) 0.3 Lymph # 1.3 [place] # 0.7 Eos # 0.2 Baso # 0.0 Seg Neutrophils % 65.5 Seg Neutrophils # 4.2 Sodium Potassium Chloride Carbon Dioxide Anion Gap BUN Creatinine Estimated GFR BUN/Creatinine Ratio Glucose POC Glucose 89 100 Calcium Total Bilirubin AST ALT Alkaline Phosphatase Total Protein Albumin Albumin/Globulin Ratio 04/17/19 04/17/19 05:53 07:43 WBC RBC Hgb Hct MCV MCH MCHC RDW Plt Count Lymph % (Auto) [place] % (Auto) Eos % (Auto) Baso % (Auto) Lymph # [place] # Eos # Baso # Seg Neutrophils % Seg Neutrophils # Sodium 144 Potassium 4.0 Chloride 106.6 Carbon Dioxide 22 Anion Gap 19 BUN 14 Creatinine 1.4 Estimated GFR 48 BUN/Creatinine Ratio 10 Glucose 87 POC Glucose 91 Calcium 8.9 Total Bilirubin 1.00 AST 86 H ALT 147 H Alkaline Phosphatase 218 H Total Protein 6.7 Albumin 3.6 L Albumin/Globulin Ratio 1.2
--- NOTE | 2019-04-17 11:56 | Progress Note ---
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 clinically, patient reports feeling better with no abd pain or N/V and LFTs now improving. Tolerating diet w/o complaints. surgery following with no recommendations for CCY at this time. Currently stable cardiac status. Pt may discharge home from cardiology standpoint on home cardiac regimen. Recommend pt follow up in our office with Dr. Christianson within 1-2 weeks of discharge ([phone]). The patient has been seen in conjunction with DR. SHAI Ernst who agrees with the assessment and plan of care. Subjective Date of service: 04/17/19 Principal diagnosis: elevated LFTs Interval history: pt resting in bed, no current complaints. tolerating diet. Objective Last Vital Signs Temp 98.1 F 04/17/19 07:35 Pulse 53 L 04/17/19 07:35 Resp 18 04/17/19 07:35 BP 134/61 04/17/19 07:35 Pulse Ox 97 04/17/19 07:35 - Physical Examination General: Appears Well HEENT: Positive: PERRL, Mucus Membranes Moist Neck: Positive: neck supple, trachea midline Cardiac: Positive: Reg Rate and Rhythm, S1/S2 Lungs: Positive: Decreased Breath Sounds Neuro: Positive: Grossly Intact Abdomen: Positive: Soft, Active Bowel Sounds, Tender Skin: Positive: Clear Incision: Cardiac Cath Site Musculoskeletal: No Pain, Normal Range of Motion Extremities: Present: normal. Absent: edema - Labs and Meds Cardiac Enzymes 04/17/19 Range/Units 05:53 AST 86 H (5-40) units/L CBC 04/17/19 Range/Units 05:53 WBC 6.3 (4.5-11.0) K/mm3 RBC 3.61 L (3.65-5.03) M/mm3 Hgb 11.5 L (11.8-15.2) gm/dl Hct 34.6 L (35.5-45.6) % Plt Count 179 (140-440) K/mm3 Lymph # 1.3 (1.2-5.4) K/mm3 [place] # 0.7 (0.0-0.8) K/mm3 Eos # 0.2 (0.0-0.4) K/mm3 Baso # 0.0 (0.0-0.1) K/mm3 Comprehensive Metabolic Panel 04/17/19 Range/Units 05:53 Sodium 144 (137-145) mmol/L Potassium 4.0 (3.6-5.0) mmol/L Chloride 106.6 (98-107) mmol/L Carbon Dioxide 22 (22-30) mmol/L BUN 14 (9-20) mg/dL Creatinine 1.4 (0.8-1.5) mg/dL Glucose 87 (75-100) mg/dL Calcium 8.9 (8.4-10.2) mg/dL AST 86 H (5-40) units/L ALT 147 H (7-56) units/L Alkaline Phosphatase 218 H (35-129) units/L Total Protein 6.7 (6.3-8.2) g/dL Albumin 3.6 L (3.9-5) g/dL - Imaging and Cardiology Echo: report reviewed (04/04/2019 moderate LV dysfunction EF 30-35% with mild mitral regurgitation and mild tricuspid regurgitation)
--- NOTE | 2019-04-17 13:04 | Progress Note ---
Assessment and Plan 84 yo M with 1. RUQ pain 2. elevated bilirubin secondary to choledocolithiasis 3. transaminitis 4. pancreatitis secondary to gallstone - resolved CT scan A/P - gallbladder wall mildly thickened, possible early cholecystitis. No stones. RUQ U/s - mildly thickened gallbladder wall, no stones ERCP and sphincterotomy 04/16 - no CBD stones, ? mild ampullary stenosis Plan: Bilirubin and LFTs improving 1. Low fat diet 2. ok to dc home from surgery standpoint. May follow up in surgery clinic if RUQ pain symptoms recur Discussed plan with patient and family. Thank you, please call with questions Subjective Date of service: 04/17/19 Narrative: Pt seen and examined. No complaints. Tolerated regular diet last night and this am. No f/c, cp, sob, n/v, abd pain. Objective Vital Signs - 12hr 04/17/19 04/17/19 03:14 07:35 Temperature 98.3 F 98.1 F Pulse Rate 56 L 53 L Respiratory 18 18 Rate Blood Pressure 136/72 134/61 O2 Sat by Pulse 95 97 Oximetry - General physical appearance Narrative Exam: Gen: AAOx3. NAD CV: s1, S2+ Resp: even and unlabored Abd: soft, NT, ND Ext: no c/c/e - Labs 04/17/19 05:53 04/17/19 05:53 Diabetes panel 04/17/19 Range/Units 05:53 Sodium 144 (137-145) mmol/L Potassium 4.0 (3.6-5.0) mmol/L Chloride 106.6 (98-107) mmol/L Carbon Dioxide 22 (22-30) mmol/L BUN 14 (9-20) mg/dL Creatinine 1.4 (0.8-1.5) mg/dL Glucose 87 (75-100) mg/dL Calcium 8.9 (8.4-10.2) mg/dL AST 86 H (5-40) units/L ALT 147 H (7-56) units/L Alkaline Phosphatase 218 H (35-129) units/L Total Protein 6.7 (6.3-8.2) g/dL Albumin 3.6 L (3.9-5) g/dL Calcium panel 04/17/19 Range/Units 05:53 Calcium 8.9 (8.4-10.2) mg/dL Albumin 3.6 L (3.9-5) g/dL Pituitary panel 04/17/19 Range/Units 05:53 Sodium 144 (137-145) mmol/L Potassium 4.0 (3.6-5.0) mmol/L Chloride 106.6 (98-107) mmol/L Carbon Dioxide 22 (22-30) mmol/L BUN 14 (9-20) mg/dL Creatinine 1.4 (0.8-1.5) mg/dL Glucose 87 (75-100) mg/dL Calcium 8.9 (8.4-10.2) mg/dL Adrenal panel 04/17/19 Range/Units 05:53 Sodium 144 (137-145) mmol/L Potassium 4.0 (3.6-5.0) mmol/L Chloride 106.6 (98-107) mmol/L Carbon Dioxide 22 (22-30) mmol/L BUN 14 (9-20) mg/dL Creatinine 1.4 (0.8-1.5) mg/dL Glucose 87 (75-100) mg/dL Calcium 8.9 (8.4-10.2) mg/dL Total Bilirubin 1.00 (0.1-1.2) mg/dL AST 86 H (5-40) units/L ALT 147 H (7-56) units/L Alkaline Phosphatase 218 H (35-129) units/L Total Protein 6.7 (6.3-8.2) g/dL Albumin 3.6 L (3.9-5) g/dL
== END 2019-04-17 12:02 | disposition home or self-care (01) | DRG 444 ==
LOC: ED 21:04 → 2B-ACE 04-13 02:35
PROVIDERS: ADMIT Internal Medicine; ATTEND Internal Medicine
PROC: 0F798ZZ Dilation of Common Bile Duct, Via Natural or Artificial Opening Endoscopic (ICD-10-PCS; principal; 2019-04-16)
PROC: BF101ZZ Fluoroscopy of Bile Ducts using Low Osmolar Contrast (ICD-10-PCS; 2019-04-16)
DX: K80.43 Calculus of bile duct with acute cholecystitis with obstruction (principal); K85.90 Acute pancreatitis without necrosis or infection, unspecified; R65.10 Systemic inflammatory response syndrome (SIRS) of non-infectious origin without acute organ dysfunction; I42.9 Cardiomyopathy, unspecified; K80.41 Calculus of bile duct with cholecystitis, unspecified, with obstruction; R74.0 Nonspecific elevation of levels of transaminase and lactic acid dehydrogenase [LDH]; I10 Essential (primary) hypertension; I25.10 Atherosclerotic heart disease of native coronary artery without angina pectoris; K21.9 Gastro-esophageal reflux disease without esophagitis; D64.9 Anemia, unspecified; D72.829 Elevated white blood cell count, unspecified; E80.6 Other disorders of bilirubin metabolism; M19.90 Unspecified osteoarthritis, unspecified site; F03.90 Unspecified dementia, unspecified severity, without behavioral disturbance, psychotic disturbance, mood disturbance, and anxiety; E78.2 Mixed hyperlipidemia; Z87.891 Personal history of nicotine dependence; Z88.5 Allergy status to narcotic agent; Z79.82 Long term (current) use of aspirin; Z79.899 Other long term (current) drug therapy; Z87.442 Personal history of urinary calculi; Z90.49 Acquired absence of other specified parts of digestive tract
CPT/HCPCS: 36415; 71045; 71275; 74177; 74328; 76705; 80048; 80053; 80076; 82607; 82747; 82962; 83550; 83690; 83880; 84484; 85025; 85027; 85379; 85610; 87116; 93005; 93010; 93970; G0378; C1726; J1650; J2270; J2405; J2543; J2704; J7030; Q9967

== ENCOUNTER 2021-12-03 17:33 | Emergency (ER) | payer MEDICARE ==
--- NOTE | 2021-12-03 19:02 | Emergency Department Report ---
ED Lower Extremity HPI - General Chief Complaint: Extremity Injury, Lower Stated Complaint: SWOLLEN LT FOOT Time Seen by Provider: 12/03/21 18:41 Source: patient, EMS Mode of arrival: Stretcher Limitations: Physical Limitation - History of Present Illness Initial Comments: Patient is an 86-year-old male who presents emergency room with left lower extremity swelling. Patient is alert and oriented x2. Patient oriented to place and person. Patient's not sure when his swelling started. Patient denies pain. Patient denies fever and chills. Patient does not have any complaints. I discussed the case with the patient's daughter. 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 Patient's pain 3 days in the hospital on anticoagulants. Patient was discharged on Eliquis twice a day. Patient is compliant with medications. Daughter states that the patient has a history of chronic kidney disease stage III, CHF, AV block, pacemaker, Alzheimer's disease, hypertension, hype rlipidemia, type 2 diabetes. Daughter states the patient is taking all of his medications. Daughter states he has an appointment with the treatment plant mechanic in a couple days. Daughter states that he will see the primary care on Monday. Daughter states they need a referral to a vascular surgeon. 12/03/21 19:14 MD Complaint: other (Left foot swelling) -: unknown Injury: Leg: Left, Foot: Left Type of Injury: unknown Place: home Severity: moderate Improves With: rest Worsens With: movement - Related Data Previous Rx's Medication Instructions Recorded Last Taken Type Aspirin 325 mg PO QDAY #30 tablet 08/30/15 10/13/15 Rx Benazepril HCl [Lotensin] 20 mg PO DAILY #30 tablet 08/30/15 10/13/15 Rx Simvastatin (Nf) [Zocor TAB] 20 mg PO QHS #30 tablet 08/30/15 10/13/15 Rx cephALEXin [Keflex] 500 mg PO Q8HR #15 cap 04/17/19 Unknown Rx Allergies Allergy/AdvReac Type Severity Reaction Status Date / Time codeine Allergy Unknown Verified 08/28/15 17:18 ED Review of Systems ROS: Stated complaint: SWOLLEN LT FOOT Other details as noted in HPI Comment: Unobtainable due to pts medical conditions ED Past Medical Hx - Past Medical History Previous Medical History?: Yes Hx Hypertension: Yes Hx Heart Attack/AMI: No Hx Congestive Heart Failure: Yes Hx Diabetes: Yes Hx Deep Vein Thrombosis: Yes Hx GERD: Yes Hx Liver Disease: Yes (transaminitis) Hx Renal Disease: Yes (ANA vs CKD) Hx Arthritis: Yes (bacK) Hx Kidney Stones: Yes Hx Dementia: Yes Additional medical history: Pacemaker, SHINGLES. CAD. HIGH CHOLESTEROL. dvt - Surgical History Past Surgical History?: Yes Hx Pacemaker: Yes (EKG A-sensed, V-paced) Hx Internal Defibrillator: No Hx Appendectomy: Yes Additional Surgical History: Pacemaker. HERNIA REPAIR X 3. CYSTOSCOPE. CAR OTID SURGERY (LEFT) - Family History Family history: no significant - Social History Smoking Status: Former Smoker Substance Use Type: None - Medications Home Medications: Home Medications Medication Instructions Recorded Confirmed Last Taken Type Aspirin 325 mg PO QDAY #30 tablet 08/30/15 04/15/19 10/13/15 Rx Benazepril HCl [Lotensin] 20 mg PO DAILY #30 tablet 08/30/15 04/15/19 10/13/15 Rx Simvastatin (Nf) [Zocor TAB] 20 mg PO QHS #30 tablet 08/30/15 04/15/19 10/13/15 Rx cephALEXin [Keflex] 500 mg PO Q8HR #15 cap 04/17/19 Unknown Rx ED Physical Exam - General Limitations: Altered Mental Status, Physical Limitation General appearance: alert, in no apparent distress - Head Head exam: Present: atraumatic, normocephalic - Eye Eye exam: Present: normal appearance, PERRL Pupils: Present: normal accommodation - ENT ENT exam: Present: mucous membranes moist - Neck Neck exam: Present: normal inspection - Respiratory Respiratory exam: Present: normal lung sounds bilaterally. Absent: respiratory distress - Cardiovascular Cardiovascular Exam: Present: regular rate, normal rhythm. Absent: systolic murmur, diastolic murmur, rubs, gallop - GI/Abdominal GI/Abdominal exam: Present: soft, normal bowel sounds - Rectal Rectal exam: Present: deferred - Extremities Exam Extremities exam: Present: full ROM, normal capillary refill, pedal edema. Absent: tenderness, calf tenderness - Back Exam Back exam: Present: normal inspection - Neurological Exam Neurological exam: Present: alert, oriented X3 - Psychiatric Psychiatric exam: Present: normal affect, normal mood - Skin Skin exam: Present: warm, dry, intact, normal color. Absent: rash ED Course Vital Signs 12/03/21 18:25 Temperature 97.8 F Pulse Rate 73 Respiratory 18 Rate Blood Pressure 101/57 [Left] O2 Sat by Pulse 98 Oximetry - Reevaluation(s) Reevaluation #1: I discussed the case with the patient's daughter. 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 Patient's pain 3 days in the hospital on anticoagulants. Patient was discharged on Eliquis twice a day. Patient is compliant with medications. Daughter states that the patient has a history of chronic kidney disease stage III, CHF, AV block, pacemaker, Alzheimer's disease, hypertension, hyperlipidemia, type 2 diabetes. Daughter states the patient is taking all of his medications. Daughter states he has an appointment with the treatment plant mechanic in a couple days. Daughter states that he will see the primary care on Monday. Daughter states they need a referral to a vascular surgeon. 12/03/21 19:14 Reevaluation #2: I discussed all results and clinical findings with patient and family. I discussed plan of care with patient and family. Patient and family agrees with plan of care. Patient is stable for discharge. Patient will be discharged home. Patient and family given discharge instructions. Family voiced understanding of discharge instructions. 12/03/21 19:57 ED Lower Extremity MDM - Lab Data Result diagrams: 12/03/21 19:01 12/03/21 19:01 - Medical Decision Making Patient is a 86-year-old male who presents emergency room with complaints of worsening left lower extremity swelling. Patient was diagnosed with a DVT 2 weeks ago. Patient was in [facility] for 3 days on anticoagulants. Patient was discharged from the hospital 2 weeks ago with Eliquis. Patient is compliant with all medications and his twice a day Eliquis. Patient has advanced dementia. Patient family was at bedside and I discussed the patient's history and the patient's DVT and leg swelling with the patient's daughter. Patient's daughter stated she was concerned that the swelling had increased. Labs were done on the patient. Patient's labs were essentially markable except for elevated creatinine. Patient has history of CKD 3. Patient's creatinine was 1.4. Patient is stable for discharge. Patient not require any further emergency medical services. Patient not require inpatient service. Patient instructed to continue Eliquis. All of patient's discharge and discharge instructions were given to the family and the patient. - Differential Diagnosis Lower extremity swelling, DVT, salt retention Critical care attestation.: If time is entered above; I have spent that time in minutes in the direct care of this critically ill patient, excluding procedure time. ED Disposition Clinical Impression: Left leg swelling Left leg DVT Qualifiers: Affected thrombotic vein of extremity: unspecified vein of extremity Chronicity: acute Qualified Code(s): I82.402 - Acute embolism and thrombosis of unspecified deep veins of left lower extremity Disposition: HOME / SELF CARE / HOMELESS Is pt being admited?: No Does the pt Need Aspirin: No Condition: Stable Instructions: Deep Vein Thrombosis, Venous Thromboembolism Prevention Additional Instructions: Patient to follow-up with primary care in 2 to 3 days. Patient to follow-up with treatment plant mechanic and vascular surgery in 2 to 3 days. Patient to rest. Patient to increase water. Patient to avoid strenuous exercise or heavy lifting until cleared by vascular surgery. Patient to take Tylenol as needed for pain. Patient to continue all medications.. Patient to return to the ER if condition worsens, changes or new symptoms arise. Referrals: EDWAYNE LEDESMA MD [Staff Physician] - 2-3 Days Time of Disposition: 20:00
[2021-12-03 19:28] LABS: Hematocrit 34.6 % (35.5-45.6); Hemoglobin 11.4 gm/dl (11.8-15.2); Mean Corpuscular HGB Conc 33 % (32-34); Mean Corpuscular Volume 93 fl (84-94); Platelet Count 321 K/mm3 (140-440); Red Blood Count 3.71 M/mm3 (3.65-5.03); Red Cell Distribution Width 15.1 % (13.2-15.2)
[2021-12-03 19:39] LABS: Albumin 3.7 g/dL (3.9-5); Calcium 9.4 mg/dL (8.4-10.2)
[2021-12-03 20:51] VITALS: BP 131/68
== END 2021-12-03 20:40 | disposition home or self-care (01) ==
LOC: ED 17:33
DX: I82.402 Acute embolism and thrombosis of unspecified deep veins of left lower extremity (principal); M79.89 Other specified soft tissue disorders; I13.0 Hypertensive heart and chronic kidney disease with heart failure and stage 1 through stage 4 chronic kidney disease, or unspecified chronic kidney disease; E11.22 Type 2 diabetes mellitus with diabetic chronic kidney disease; N18.30 Chronic kidney disease, stage 3 unspecified; I50.9 Heart failure, unspecified; N17.9 Acute kidney failure, unspecified; K21.9 Gastro-esophageal reflux disease without esophagitis; M19.90 Unspecified osteoarthritis, unspecified site; R74.01 Elevation of levels of liver transaminase levels; Z87.442 Personal history of urinary calculi; F03.90 Unspecified dementia, unspecified severity, without behavioral disturbance, psychotic disturbance, mood disturbance, and anxiety; E78.00 Pure hypercholesterolemia, unspecified; Z90.89 Acquired absence of other organs; Z98.890 Other specified postprocedural states; Z87.891 Personal history of nicotine dependence; Z88.5 Allergy status to narcotic agent
CPT/HCPCS: 36415; 80053; 85027; 99283